=== PATIENT | male | born 1965 | race Caucasian/White ===

== ENCOUNTER 2018-01-21 12:48 | Outpatient (REF) | payer MEDICAID, SELFPAY ==
[2018-01-21 13:55] LABS: Abs Immature Grans 0.02 k/cumm (0.0-0.09); Absolute Basophil Count 0.02 k/cumm (0.0-0.2); Absolute Eosinophil Count 0.14 k/cumm (0.0-0.7); Absolute Lymphocyte Count 2.24 k/cumm (1.2-3.4); Absolute Monocyte Count 0.63 k/cumm (0.11-0.7); Absolute Neutrophil Count 4.54 k/cumm (1.2-6.7); Basophils % 0.3; Eosinophils % 1.8; HCT 35.9 % (40.0-50.0); HGB 12.2 g/dL (13.5-17.5); Immature Grans % 0.3; Lymphocytes % 29.5; Mean Corpuscular Hemoglobin 31.1 pg (27.0-33.0); Mean Corpuscular Volume 91.6 fL (80-95); Mean Platelet Volume 10.9 fL (8.0-11.0); Monocytes % 8.3; Neutrophils % 59.8; Platelet Count 261 x1000/uL (130-400); RBC 3.92 m/cumm (4.50-6.00); RBC Distribution Width 13.5 % (11.8-14.1); White Blood Cell Count 7.59 k/cumm (4.4-10.8)
[2018-01-21 14:04] LABS: ALT 49 U/L (12-78); AST 29 U/L (15-37); Albumin 3.2 g/dL (3.4-5.0); Alkaline Phosphatase 65 U/L (46-116); Anion Gap 8.3 mmol/L (3-11); BUN 51 mg/dL (7-18); Bilirubin, Total 0.3 mg/dL (0.2-1.0); CO2 25.7 mmol/L (21.0-32.0); CREATININE 1.46 mg/dL (0.70-1.30); Calcium 8.8 mg/dL (8.5-10.1); Chloride 105 mmol/L (98-107); Glucose 213 mg/dL (70-100); Potassium 5.9 mmol/L (3.5-5.1); Sodium 139 mmol/L (136-145); Total Protein 6.5 g/dL (6.4-8.2)
[2018-01-21 14:05] LABS: VALPROIC ACID 41.5 ug/mL (50-100)
== END 2018-01-21 13:08 ==
LOC: LBN 12:48
PROVIDERS: PCP Nurse Practitioner Family; Visit Provider Family Medicine
DX: E10.40 Type 1 diabetes mellitus with diabetic neuropathy, unspecified (principal); E78.5 Hyperlipidemia, unspecified; I10 Essential (primary) hypertension; Z51.81 Encounter for therapeutic drug level monitoring; Z86.73 Personal history of transient ischemic attack (TIA), and cerebral infarction without residual deficits; F31.9 Bipolar disorder, unspecified
CPT/HCPCS: 80053; 80164; 85025

== ENCOUNTER 2018-01-25 14:50 | Outpatient (REF) | payer MEDICAID, SELFPAY ==
[2018-01-25 15:16] LABS: Potassium 5.6 mmol/L (3.5-5.1)
== END 2018-01-25 15:10 ==
LOC: LBN 14:50
PROVIDERS: PCP Nurse Practitioner Family; Visit Provider Family Medicine
DX: E87.5 Hyperkalemia (principal)
CPT/HCPCS: 84132

== ENCOUNTER 2018-01-31 03:23 | Emergency (ER) | payer MEDICAID, SELFPAY ==
[2018-01-31 03:31] VITALS: BP 105/59; PULSE 102; RESP 17; TEMP 37.9; O2SAT 96
--- NOTE | 2018-01-31 03:38 | W.ED.GENAD ---
Discharge Plan Disposition Patient Disposition: SNF (LEVEL 1) [facility] Condition: Fair Discharge Details Chief Complaint: Fever Clinical Impression: HCAP (healthcare-associated pneumonia), Renal insufficiency Reason For Visit: AMY Primary Care Provider: Judy Ordoñez ED Provider: Miguel Angel Leiva [place] Meds and New Rx's Prescriptions: New Iv Access 1 ea IV DIRECTED 7 Days RF: 0 piperacillin-tazobactam [Zosyn] 3.375 gram Recon Soln 3.375 g IVPB QID 7 Days RF: 0 Continue lancets [OneTouch Delica Lancets] 1 EACH misc 1 ea Miscellaneous AC & HS Qty: 360 RF: 3 pen needle, diabetic [BD Ultra-Fine Orig Pen Needle] 1 EACH needle 1 ea Miscellaneous QID Qty: 300 RF: 3 blood sugar diagnostic [OneTouch Verio] 1 EACH strip 1 ea Miscellaneous AC & HS Qty: 400 RF: 3 buspirone 15 MG tablet 15 mg PO BID Qty: 60 RF: 0 Atorvastatin Calcium 10 MG tablet 10 mg PO DAILY Qty: 30 RF: 0 verapamil 40 MG tablet 40 mg PO HS Qty: 30 RF: 0 magnesium oxide 400 MG tablet 400 mg PO DAILY Qty: 30 RF: 0 fluoxetine [Prozac] 20 MG capsule 20 mg PO DAILY Qty: 30 RF: 0 fludrocortisone 0.1 MG tablet 0.1 mg PO BID Qty: 60 RF: 0 gabapentin 800 MG tablet 800 mg PO BID Qty: 60 RF: 11 divalproex [Depakote] 500 MG tablet,delayed release (DR/EC) 1,000 mg PO BID Qty: 120 RF: 11 magnesium hydroxide [Milk of Magnesia] 400 MG/5 ML suspension 30 ml PO PRN RF: 0 sodium phosphates [Fleet Enema] 133 ML enema 133 ml RC PRN RF: 0 acetaminophen [Tylenol Extra Strength] 500 MG tablet 1,000 mg PO Q6H PRN PRNRF: 0 dextrose [Glutose 15] 15 GM/37.5 GM gel 25 gm PO PRN PRNQty: 1 RF: 1 glucagon (human recombinant) [Glucagon Emergency Kit (human)] 1 MG kit 1 mg IJ PRN PRNRF: 0 dextrose [Glutose 15] 15 GM/37.5 GM gel 15 gm PO DIRECTED PRNQty: 1 RF: 0 ranitidine HCl [Zantac] 150 MG tablet 150 mg PO BID RF: 0 lisinopril 10 MG tablet 10 mg PO DAILY RF: 0 insulin aspart U-100 [Novolog Flexpen U-100 Insulin] 300 UNITS/3 ML insulin pen 1 unit Sub-Q 0800,1200,1700 RF: 0 insulin aspart U-100 [Novolog Flexpen U-100 Insulin] 300 UNITS/3 ML insulin pen Sub-Q 0800,1200,1700 RF: 0 insulin glargine [Lantus Solostar U-100 Insulin] 300 UNITS/3 ML insulin pen 10 units Sub-Q HS RF: 0 acidophilus-pectin, citrus 1 CAP tablet 1 cap PO TID Qty: 30 RF: 0 Discharge Instructions Additional Instructions: Would continue NS at 150 ml/hr over the next 24 hours and repeat a BMP tomorrow morning. Zosyn 3.375 g IV q6h for 1 week for HCAP. Tylenol for fever. Should be re-evaluated by MD tomorrow. Return to ED if worse. Referrals: Judy Ordoñez NP [Primary Care Provider] - Medical Decision Making Patient here with fever and fluctuating BP, elevated sugar. He has cough and some diminished breath sounds at right base. Will need IV, labs, cultures, urine and chest x-ray. Will give fluid bolus. Patient's labs with some anemia and some renal insufficiency likely related to some dehydration. Lytes ok. No anion gap. Sugar here 258. Lactate just over 2. LR bolus finishing then will switch to NS at 150 ml/hr. CXR with ELLY infiltrate so will treat with Zosyn for HCAP. Nurse spoke with nursing at [facility] and they are able to do IVF and IV abx there. He is not septic or toxic and saturations are good so will send back and have doctor there check on him tomorrow. Return to hospital if worsening symptoms. Lab Data Lab results reviewed: Yes I reviewed the patient's lab results. HPI General Mode of arrival: EMS. Date/Time Provider Initiated Documentation: 01/31/18 03:37. Limitations to Documentation: no limitations. Information obtained by: patient. HPI Narrative: Patient states he woke up with chills and was found to have fever and elevated blood pressure. Sugar also high. Sent here for evaluation. He has had cough with some post tussive vomiting. He denies chest pain, shortness of breath or back pain. He denies diarrhea but has a little nausea and a little abdominal pain. He denies urinary symptoms. He denies headache. He did have some left sided neck pain with radiation down into shoulder now essentially gone. He has old right sided deficits from previous stroke. Related Data Home Medications Medication Instructions Recorded Confirmed lancets [Bal[employer]Touch Lipperhey Lancets] #360 ea 01/08/16 01/31/18 acetaminophen [Tylenol Extra 1,000 mg PO Q6H PRN PRN 02/26/16 01/31/18 Strength] pen needle, diabetic [BD #300 04/06/17 01/31/18 Ultra-Fine Orig Pen Needle] dextrose [Glutose 15] 25 gm PO PRN PRN #1 tube 05/15/17 01/31/18 blood sugar diagnostic [OneTouch #400 strip 07/01/17 01/31/18 Verio] buspirone 15 mg PO BID #60 tab-cap 09/23/17 01/31/18 fludrocortisone 0.1 mg PO BID #60 tab-cap 10/05/17 01/31/18 fluoxetine [Prozac] 20 mg PO DAILY #30 tab-cap 10/05/17 01/31/18 magnesium oxide 400 mg PO DAILY #30 tab-cap 10/05/17 01/31/18 verapamil 40 mg PO HS #30 tab-cap 10/05/17 01/31/18 acidophilus-pectin, citrus 1 cap PO TID #30 cap 10/12/17 01/31/18 glucagon (human recombinant) 1 mg IJ PRN PRN 10/29/17 01/31/18 [Glucagon Emergency Kit (human)] divalproex [Depakote] 1,000 mg PO BID #120 tab-cap 11/11/17 01/31/18 gabapentin 800 mg PO BID #60 tab-cap 11/11/17 01/31/18 dextrose [Glutose 15] 15 gm PO DIRECTED PRN #1 tube 11/26/17 01/31/18 insulin aspart U-100 [Novolog 0 units SUB-Q 0800,1200,1700 pen 11/26/17 01/31/18 Flexpen U-100 Insulin] insulin aspart U-100 [Novolog 1 unit SUB-Q 0800,1200,1700 pen 11/26/17 01/31/18 Flexpen U-100 Insulin] insulin glargine [Lantus Solostar 10 units SUB-Q HS pen 11/26/17 01/31/18 U-100 Insulin] lisinopril 10 mg PO DAILY tab 11/26/17 01/31/18 ranitidine HCl [Zantac] 150 mg PO BID tab 11/26/17 01/31/18 magnesium hydroxide [Milk of 30 ml PO PRN ml 12/21/17 01/31/18 Magnesia] sodium phosphates [Fleet Enema] 133 ml RC PRN enema 12/21/17 01/31/18 IV Access 1 ea IV DIRECTED 7 Days 01/31/18 piperacillin-tazobactam [Zosyn] 3.375 g IVPB QID 7 Days each 01/31/18 Previous Rx's Medication Instructions Recorded pen needle, diabetic [BD #300 04/06/17 Ultra-Fine Orig Pen Needle] dextrose [Glutose 15] 25 gm PO PRN PRN #1 tube 05/15/17 blood sugar diagnostic [OneTouch #400 strip 07/01/17 Verio] buspirone 15 mg PO BID #60 tab-cap 09/23/17 fludrocortisone 0.1 mg PO BID #60 tab-cap 10/05/17 fluoxetine [Prozac] 20 mg PO DAILY #30 tab-cap 10/05/17 magnesium oxide 400 mg PO DAILY #30 tab-cap 10/05/17 verapamil 40 mg PO HS #30 tab-cap 10/05/17 acidophilus-pectin, citrus 1 cap PO TID #30 cap 10/12/17 divalproex [Depakote] 1,000 mg PO BID #120 tab-cap 11/11/17 gabapentin 800 mg PO BID #60 tab-cap 11/11/17 dextrose [Glutose 15] 15 gm PO DIRECTED PRN #1 tube 11/26/17 insulin aspart U-100 [Novolog 0 units SUB-Q 0800,1200,1700 pen 11/26/17 Flexpen U-100 Insulin] insulin aspart U-100 [Novolog 1 unit SUB-Q 0800,1200,1700 pen 11/26/17 Flexpen U-100 Insulin] insulin glargine [Lantus Solostar 10 units SUB-Q HS pen 11/26/17 U-100 Insulin] lisinopril 10 mg PO DAILY tab 11/26/17 ranitidine HCl [Zantac] 150 mg PO BID tab 11/26/17 IV Access 1 ea IV DIRECTED 7 Days 01/31/18 piperacillin-tazobactam [Zosyn] 3.375 g IVPB QID 7 Days each 01/31/18 Allergies Allergy/AdvReac Type Severity Reaction Status Date / Time No Known Drug Allergies Allergy none Unverified 01/31/18 04:03 Review of Systems Constitutional Reports chills, Reports fever(s), Denies headache(s) and Denies malaise Eyes Denies eye discharge and Denies irritation ENT Denies otalgia, Denies facial pain, Denies headache(s), Denies nasal congestion, Reports neck pain, Denies sinus pressure and Denies sore throat Cardiovascular Denies chest pain, Denies diaphoresis, Denies syncope, Denies rapid heart rate, Denies edema and Denies dyspnea Respiratory Reports cough and Denies dyspnea Gastrointestinal Reports abdominal pain, Denies diarrhea, Reports nausea and Reports vomiting Genitourinary Denies hematuria, Denies dysuria and Denies flank pain Musculoskeletal Denies back pain, Denies myalgias, Denies arthralgias and Reports neck pain Integumentary/Breasts Denies erythema and Denies rash Neurologic Denies abnormal speech, Denies confusion, Denies syncope, Denies headache(s), Reports focal weakness (residual right sided weakness) and Denies sensory deficit Psychiatric Denies confusion [facility] Family History Mother Diabetes Heart disease Father Alzheimer's disease Parkinson's disease Sister Diabetes Essential hypertension Obese Brother Diabetes Essential hypertension Obese Medical History Clostridium difficile infection Depression Diabetic neuropathy Diabetic retinopathy ETOH abuse Fracture, metacarpal (01/08/14) GERD (gastroesophageal reflux disease) Hyperlipidemia Tobacco use disorder Type 1 diabetes mellitus Social History Smoking/Tobacco Use Status: Former Tobacco Use Surgical History EGD - MAC (05/03/16) EGD w/ BX (06/24/16) I&D LEFT DEEP [facility] (04/23/15) Exam Const General: cooperative and no acute distress Orientation: alert and oriented x3 [facility] Head: normocephalic and atraumatic Mouth: moist mucous membranes Eyes Conjunctivae: conjunctivae normal Sclera: sclerae normal Neck Neck: normal visual inspection, full ROM and supple Resp Effort & Inspection: normal respiratory effort Auscultation: diminished lung sounds on the right in the lower lung hathaway Cardio Rate: regular rate Rhythm: regular rhythm Heart Sounds: S1 normal and S2 normal Pulses: radial pulses present GI Palpation: soft, not firm, no guarding and nontender Skin General skin exam: no rashes or lesions noted and no erythema Neuro General: alert, oriented x3, moves all extremities (weakness on right is old) and CN's II-XI intact bilaterally Sensory Exam: no sensory deficits noted Extrem General: normal to inspection, full ROM and no calf tenderness
[2018-01-31] MEDS: Lactated Ringers 1,000 ML 1000 ML IV (03:45)
--- NOTE | 2018-01-31 04:10 | ED.GENADUL_ITS ---
Discharge Plan Disposition Patient Disposition: SNF (LEVEL 1) [facility] Condition: Fair Discharge Details Chief Complaint: Fever Clinical Impression: HCAP (healthcare-associated pneumonia), Renal insufficiency Reason For Visit: AMY Primary Care Provider: Judy Ordoñez ED Provider: Miguel Angel Leiva [place] Meds and New Rx's Prescriptions: New Iv Access 1 ea IV DIRECTED 7 Days RF: 0 piperacillin-tazobactam [Zosyn] 3.375 gram Recon Soln 3.375 g IVPB QID 7 Days RF: 0 Continue lancets [OneTouch Delica Lancets] 1 EACH misc 1 ea Miscellaneous AC & HS Qty: 360 RF: 3 pen needle, diabetic [BD Ultra-Fine Orig Pen Needle] 1 EACH needle 1 ea Miscellaneous QID Qty: 300 RF: 3 blood sugar diagnostic [OneTouch Verio] 1 EACH strip 1 ea Miscellaneous AC & HS Qty: 400 RF: 3 buspirone 15 MG tablet 15 mg PO BID Qty: 60 RF: 0 Atorvastatin Calcium 10 MG tablet 10 mg PO DAILY Qty: 30 RF: 0 verapamil 40 MG tablet 40 mg PO HS Qty: 30 RF: 0 magnesium oxide 400 MG tablet 400 mg PO DAILY Qty: 30 RF: 0 fluoxetine [Prozac] 20 MG capsule 20 mg PO DAILY Qty: 30 RF: 0 fludrocortisone 0.1 MG tablet 0.1 mg PO BID Qty: 60 RF: 0 gabapentin 800 MG tablet 800 mg PO BID Qty: 60 RF: 11 divalproex [Depakote] 500 MG tablet,delayed release (DR/EC) 1,000 mg PO BID Qty: 120 RF: 11 magnesium hydroxide [Milk of Magnesia] 400 MG/5 ML suspension 30 ml PO PRN RF: 0 sodium phosphates [Fleet Enema] 133 ML enema 133 ml RC PRN RF: 0 acetaminophen [Tylenol Extra Strength] 500 MG tablet 1,000 mg PO Q6H PRN PRNRF: 0 dextrose [Glutose 15] 15 GM/37.5 GM gel 25 gm PO PRN PRNQty: 1 RF: 1 glucagon (human recombinant) [Glucagon Emergency Kit (human)] 1 MG kit 1 mg IJ PRN PRNRF: 0 dextrose [Glutose 15] 15 GM/37.5 GM gel 15 gm PO DIRECTED PRNQty: 1 RF: 0 ranitidine HCl [Zantac] 150 MG tablet 150 mg PO BID RF: 0 lisinopril 10 MG tablet 10 mg PO DAILY RF: 0 insulin aspart U-100 [Novolog Flexpen U-100 Insulin] 300 UNITS/3 ML insulin pen 1 unit Sub-Q 0800,1200,1700 RF: 0 insulin aspart U-100 [Novolog Flexpen U-100 Insulin] 300 UNITS/3 ML insulin pen Sub-Q 0800,1200,1700 RF: 0 insulin glargine [Lantus Solostar U-100 Insulin] 300 UNITS/3 ML insulin pen 10 units Sub-Q HS RF: 0 acidophilus-pectin, citrus 1 CAP tablet 1 cap PO TID Qty: 30 RF: 0 Discharge Instructions Additional Instructions: Would continue NS at 150 ml/hr over the next 24 hours and repeat a BMP tomorrow morning. Zosyn 3.375 g IV q6h for 1 week for HCAP. Tylenol for fever. Should be re-evaluated by MD tomorrow. Return to ED if worse. Referrals: Judy Ordoñez NP [Primary Care Provider] - Medical Decision Making Patient here with fever and fluctuating BP, elevated sugar. He has cough and some diminished breath sounds at right base. Will need IV, labs, cultures, urine and chest x-ray. Will give fluid bolus. Patient's labs with some anemia and some renal insufficiency likely related to some dehydration. Lytes ok. No anion gap. Sugar here 258. Lactate just over 2. LR bolus finishing then will switch to NS at 150 ml/hr. CXR with ELLY infiltrate so will treat with Zosyn for HCAP. Nurse spoke with nursing at [facility] and they are able to do IVF and IV abx there. He is not septic or toxic and saturations are good so will send back and have doctor there check on him tomorrow. Return to hospital if worsening symptoms. Lab Data Lab results reviewed: Yes I reviewed the patient's lab results. HPI General Mode of arrival: EMS . Date/Time Provider Initiated Documentation: 01/31/18 03:37 . Limitations to Documentation: no limitations . Information obtained by: patient . HPI Narrative: Patient states he woke up with chills and was found to have fever and elevated blood pressure. Sugar also high. Sent here for evaluation. He has had cough with some post tussive vomiting. He denies chest pain, shortness of breath or back pain. He denies diarrhea but has a little nausea and a little abdominal pain. He denies urinary symptoms. He denies headache. He did have some left sided neck pain with radiation down into shoulder now essentially gone. He has old right sided deficits from previous stroke. Related Data Home Medications Medication Instructions Recorded Confirmed lancets [Joy Media GroupTouch Triton Lancets] #360 ea 01/08/16 01/31/18 acetaminophen [Tylenol Extra 1,000 mg PO Q6H PRN PRN 02/26/16 01/31/18 Strength] pen needle, diabetic [BD #300 04/06/17 01/31/18 Ultra-Fine Orig Pen Needle] dextrose [Glutose 15] 25 gm PO PRN PRN #1 tube 05/15/17 01/31/18 blood sugar diagnostic [OneTouch #400 strip 07/01/17 01/31/18 Verio] buspirone 15 mg PO BID #60 tab-cap 09/23/17 01/31/18 fludrocortisone 0.1 mg PO BID #60 tab-cap 10/05/17 01/31/18 fluoxetine [Prozac] 20 mg PO DAILY #30 tab-cap 10/05/17 01/31/18 magnesium oxide 400 mg PO DAILY #30 tab-cap 10/05/17 01/31/18 verapamil 40 mg PO HS #30 tab-cap 10/05/17 01/31/18 acidophilus-pectin, citrus 1 cap PO TID #30 cap 10/12/17 01/31/18 glucagon (human recombinant) 1 mg IJ PRN PRN 10/29/17 01/31/18 [Glucagon Emergency Kit (human)] divalproex [Depakote] 1,000 mg PO BID #120 tab-cap 11/11/17 01/31/18 gabapentin 800 mg PO BID #60 tab-cap 11/11/17 01/31/18 dextrose [Glutose 15] 15 gm PO DIRECTED PRN #1 tube 11/26/17 01/31/18 insulin aspart U-100 [Novolog 0 units SUB-Q 0800,1200,1700 pen 11/26/17 Flexpen U-100 Insulin] insulin aspart U-100 [Novolog 1 unit SUB-Q 0800,1200,1700 pen 11/26/17 01/31/18 Flexpen U-100 Insulin] insulin glargine [Lantus Solostar 10 units SUB-Q HS pen 11/26/17 01/31/18 U-100 Insulin] lisinopril 10 mg PO DAILY tab 11/26/17 01/31/18 ranitidine HCl [Zantac] 150 mg PO BID tab 11/26/17 01/31/18 magnesium hydroxide [Milk of 30 ml PO PRN ml 12/21/17 01/31/18 Magnesia] sodium phosphates [Fleet Enema] 133 ml RC PRN enema 12/21/17 01/31/18 IV Access 1 ea IV DIRECTED 7 Days 01/31/18 piperacillin-tazobactam [Zosyn] 3.375 g IVPB QID 7 Days each 01/31/18 Previous Rx's Medication Instructions Recorded pen needle, diabetic [BD #300 04/06/17 Ultra-Fine Orig Pen Needle] dextrose [Glutose 15] 25 gm PO PRN PRN #1 tube 05/15/17 blood sugar diagnostic [OneTouch #400 strip 07/01/17 Verio] buspirone 15 mg PO BID #60 tab-cap 09/23/17 fludrocortisone 0.1 mg PO BID #60 tab-cap 10/05/17 fluoxetine [Prozac] 20 mg PO DAILY #30 tab-cap 10/05/17 magnesium oxide 400 mg PO DAILY #30 tab-cap 10/05/17 verapamil 40 mg PO HS #30 tab-cap 10/05/17 acidophilus-pectin, citrus 1 cap PO TID #30 cap 10/12/17 divalproex [Depakote] 1,000 mg PO BID #120 tab-cap 11/11/17 gabapentin 800 mg PO BID #60 tab-cap 11/11/17 dextrose [Glutose 15] 15 gm PO DIRECTED PRN #1 tube 11/26/17 insulin aspart U-100 [Novolog 0 units SUB-Q 0800,1200,1700 pen 11/26/17 Flexpen U-100 Insulin] insulin aspart U-100 [Novolog 1 unit SUB-Q 0800,1200,1700 pen 11/26/17 Flexpen U-100 Insulin] insulin glargine [Lantus Solostar 10 units SUB-Q HS pen 11/26/17 U-100 Insulin] lisinopril 10 mg PO DAILY tab 11/26/17 ranitidine HCl [Zantac] 150 mg PO BID tab 11/26/17 IV Access 1 ea IV DIRECTED 7 Days 01/31/18 piperacillin-tazobactam [Zosyn] 3.375 g IVPB QID 7 Days each 01/31/18 Allergies Allergy/AdvReac Type Severity Reaction Status Date / Time No Known Drug Allergies Allergy none Unverified 01/31/18 04:03 Review of Systems Constitutional Reports chills, Reports fever(s), Denies headache(s) and Denies malaise Eyes Denies eye discharge and Denies irritation ENT Denies otalgia, Denies facial pain, Denies headache(s), Denies nasal congestion , Reports neck pain, Denies sinus pressure and Denies sore throat Cardiovascular Denies chest pain, Denies diaphoresis, Denies syncope, Denies rapid heart rate, Denies edema and Denies dyspnea Respiratory Reports cough and Denies dyspnea Gastrointestinal Reports abdominal pain, Denies diarrhea, Reports nausea and Reports vomiting Genitourinary Denies hematuria, Denies dysuria and Denies flank pain Musculoskeletal Denies back pain, Denies myalgias, Denies arthralgias and Reports neck pain Integumentary/Breasts Denies erythema and Denies rash Neurologic Denies abnormal speech, Denies confusion, Denies syncope, Denies headache(s), Reports focal weakness (residual right sided weakness) and Denies sensory deficit Psychiatric Denies confusion [facility] Family History Mother Diabetes Heart disease Father Alzheimer's disease Parkinson's disease Sister Diabetes Essential hypertension Obese Brother Diabetes Essential hypertension Obese Medical History Clostridium difficile infection Depression Diabetic neuropathy Diabetic retinopathy ETOH abuse Fracture, metacarpal (01/08/14) GERD (gastroesophageal reflux disease) Hyperlipidemia Tobacco use disorder Type 1 diabetes mellitus Social History Smoking/Tobacco Use Status: Former Tobacco Use Surgical History EGD - MAC (05/03/16) EGD w/ BX (06/24/16) I&D LEFT DEEP [place] [facility] (04/23/15) Exam Const General: cooperative and no acute distress Orientation: alert and oriented x3 [facility] Head: normocephalic and atraumatic Mouth: moist mucous membranes Eyes Conjunctivae: conjunctivae normal Sclera: sclerae normal Neck Neck: normal visual inspection, full ROM and supple Resp Effort & Inspection: normal respiratory effort Auscultation: diminished lung sounds on the right in the lower lung hathaway Cardio Rate: regular rate Rhythm: regular rhythm Heart Sounds: S1 normal and S2 normal Pulses: radial pulses present GI Palpation: soft, not firm, no guarding and nontender Skin General skin exam: no rashes or lesions noted and no erythema Neuro General: alert, oriented x3, moves all extremities (weakness on right is old) and CN's II-XI intact bilaterally Sensory Exam: no sensory deficits noted Extrem General: normal to inspection, full ROM and no calf tenderness
[2018-01-31 04:21] LABS: Abs Immature Grans 0.03 k/cumm (0.0-0.09); Absolute Basophil Count 0.01 k/cumm (0.0-0.2); Absolute Eosinophil Count 0.15 k/cumm (0.0-0.7); Absolute Monocyte Count 1.15 k/cumm (0.11-0.7); Absolute Neutrophil Count 8.22 k/cumm (1.2-6.7); Basophils % 0.1; Eosinophils % 1.4; HCT 32.5 % (40.0-50.0); HGB 11.2 g/dL (13.5-17.5); Immature Grans % 0.3; Lymphocytes % 7.7; Mean Corp. HGB Concentration 34.5 g/dL (32.0-36.0); Mean Corpuscular Hemoglobin 31.2 pg (27.0-33.0); Mean Corpuscular Volume 90.5 fL (80-95); Mean Platelet Volume 10.3 fL (8.0-11.0); Monocytes % 11.1; Neutrophils % 79.4; Platelet Count 246 x1000/uL (130-400); RBC 3.59 m/cumm (4.50-6.00); RBC Distribution Width 13.3 % (11.8-14.1); White Blood Cell Count 10.36 k/cumm (4.4-10.8)
[2018-01-31 04:22] LABS: BE (Venous) -1.4 mmol/L (-3-3); HCO3 (Venous) 25 mmol/L (22-28); O2 Sat (Venous) 72 % (70-80); TCO2 (Venous) 23 mmol/L (22-29); pCO2 (Venous) 46 mm/Hg (34-47); pH (Venous) 7.33 (7.32-7.43); pO2 (Venous) 41 mm/Hg (28-44)
--- NOTE | 2018-01-31 04:23 | DI.RAD_ITS ---
SYMPTOM/DIAGNOSIS: FEVER, COUGH AP AND LATERAL CHEST: Comparison is made with 11/21/17. Heart size and pulmonary vasculature are within normal limits. There is a small infiltrate in the left upper lobe. The lungs are otherwise clear. No effusions or pneumothoraces are identified. The bones are intact. IMPRESSION: Left upper lobe pneumonia.
[2018-01-31 04:24] LABS: Lactate-non-spesis 2.3 mmol/L (0.6-1.4)
[2018-01-31 04:37] LABS: ALT 41 U/L (12-78); AST 18 U/L (15-37); Albumin 2.9 g/dL (3.4-5.0); Alkaline Phosphatase 64 U/L (46-116); BUN 46 mg/dL (7-18); Bilirubin, Total 0.3 mg/dL (0.2-1.0); CREATININE 1.75 mg/dL (0.70-1.30); Calcium 8.3 mg/dL (8.5-10.1); Chloride 103 mmol/L (98-107); Glucose 258 mg/dL (70-100); Potassium 4.8 mmol/L (3.5-5.1); Sodium 137 mmol/L (136-145); Total Protein 6.3 g/dL (6.4-8.2)
--- NOTE | 2018-01-31 05:22 | DI.VRAD_ITS ---
EXAM: XR Chest, 2 Views CLINICAL HISTORY: 52 years old, male; Signs and symptoms; Cough and fever; Patient HX: Cough, fever, vertigo TECHNIQUE: Frontal and lateral views of the chest. COMPARISON: CR CHEST 2 VIEWS PA,LAT 11/21/2017 3:41 PM FINDINGS: Lungs: Small amount of airspace disease in the left upper lobe. Pleural space: Unremarkable. No pneumothorax. Heart: Unremarkable. No cardiomegaly. Mediastinum: Unremarkable. Bones/joints: Unremarkable. IMPRESSION: Small left upper lobe infiltrate. Dictated and Authenticated by: Henry Elaine MD. Ordering:MIK JOHNSON MD
[2018-01-31] MEDS: Acetaminophen 325 MG TAB 650 MG PO (05:48)
[2018-01-31] MEDS: PIPERACILLIN/TAZO 3.375 GM in Normal Saline 50 ML IVPB (06:06)
[2018-01-31] MEDS: Normal Saline 1,000 ML 150 ML IV (06:07)
[2018-01-31 06:48] VITALS: BP 110/66; PULSE 99; RESP 16; TEMP 37.9; O2SAT 98
== END 2018-01-31 07:17 | disposition skilled nursing facility (03) ==
PROVIDERS: Emergency Provider Emergency Medicine; PCP Nurse Practitioner Family
DX: J18.9 Pneumonia, unspecified organism (principal); Y95 Nosocomial condition; E10.65 Type 1 diabetes mellitus with hyperglycemia
CPT/HCPCS: 36415; 36416; 80053; 82805; 82962; 87040; 96361; 96365; 99284; 71046; 83605; 85025; 99285; J2543

== ENCOUNTER 2018-04-14 06:09 | Outpatient (REF) | payer MEDICAID, SELFPAY ==
[2018-04-14 07:56] LABS: Abs Immature Grans 0.02 k/cumm (0.0-0.09); Absolute Basophil Count 0.02 k/cumm (0.0-0.2); Absolute Eosinophil Count 0.16 k/cumm (0.0-0.7); Absolute Lymphocyte Count 2.82 k/cumm (1.2-3.4); Absolute Monocyte Count 0.72 k/cumm (0.11-0.7); Absolute Neutrophil Count 2.67 k/cumm (1.2-6.7); Basophils % 0.3; Eosinophils % 2.5; HCT 35.1 % (40.0-50.0); HGB 11.8 g/dL (13.5-17.5); Immature Grans % 0.3; Mean Corp. HGB Concentration 33.6 g/dL (32.0-36.0); Mean Corpuscular Hemoglobin 30.7 pg (27.0-33.0); Mean Corpuscular Volume 91.4 fL (80-95); Mean Platelet Volume 10.9 fL (8.0-11.0); Monocytes % 11.2; Neutrophils % 41.7; Platelet Count 250 x1000/uL (130-400); RBC 3.84 m/cumm (4.50-6.00); RBC Distribution Width 13.1 % (11.8-14.1); Reticulocyte 1.8 % (0.5-2.4); White Blood Cell Count 6.41 k/cumm (4.4-10.8)
[2018-04-14 08:11] LABS: Iron 85 ug/dL (50-175); Total Iron Binding Capacity 325 ug/dL (250-450); Transferrin Sat 26 % (20-55)
[2018-04-14 08:15] LABS: Hemoglobin A1C 9.3 % (4.5-6.2)
[2018-04-14 08:16] LABS: VALPROIC ACID 68.9 ug/mL (50-100)
[2018-04-14 08:24] LABS: Cholesterol 151 mg/dL (50-200); Ferritin 36 ng/mL (8-388); HDL Cholesterol 66 mg/dL (40-60); LDL CHOLESTEROL 69 mg/dL (<100); TSH 2.61 uIU/mL (0.358-3.74); Triglyceride 37 mg/dL (30-150)
== END 2018-04-14 06:29 ==
LOC: LBN 06:09
PROVIDERS: PCP Nurse Practitioner Family; Visit Provider Family Medicine
DX: E11.9 Type 2 diabetes mellitus without complications (principal); D64.9 Anemia, unspecified; E78.5 Hyperlipidemia, unspecified; I10 Essential (primary) hypertension
CPT/HCPCS: 80061; 83721; 80164; 82728; 83036; 83540; 83550; 84443; 85025; 85045

== ENCOUNTER 2018-05-06 23:51 | Emergency (ER) | payer MEDICAID, SELFPAY ==
--- NOTE | 2018-05-06 23:24 | W.ED.GENAD ---
Discharge Plan Disposition Patient Disposition: HOME Condition: Stable Discharge Details Chief Complaint: Cellulitis Clinical Impression: Cellulitis of foot, right, Diabetic infection of right foot Reason For Visit: AMY Primary Care Provider: Judy Ordoñez ED Provider: John Dexter [place] Meds and New Rx's Prescriptions: New ciprofloxacin HCl 750 mg tablet 750 mg PO BID 14 Days Qty: 28 RF: 0 clindamycin HCl 150 mg capsule 450 mg PO TID 14 Days Qty: 126 RF: 0 Continued ipratropium-albuterol 0.5 mg-3 mg(2.5 mg base)/3 mL solution for nebulization 3 ml IH Q8H RF: 0 bisacodyl [Dulcolax (bisacodyl)] 10 mg suppository 10 mg [place] ONCE RF: 0 divalproex 500 mg tablet extended release 24 hr 1,000 mg PO BID RF: 0 lancets [OneTouch Delica Lancets] 1 EACH misc 1 ea Miscellaneous AC & HS Qty: 360 RF: 3 pen needle, diabetic [BD Ultra-Fine Orig Pen Needle] 1 EACH needle 1 ea Miscellaneous QID Qty: 300 RF: 3 blood sugar diagnostic [OneTouch Verio] 1 EACH strip 1 ea Miscellaneous AC & HS Qty: 400 RF: 3 buspirone 15 MG tablet 15 mg PO BID Qty: 60 RF: 0 Atorvastatin Calcium 10 MG tablet 10 mg PO DAILY Qty: 30 RF: 0 verapamil 40 MG tablet 40 mg PO HS Qty: 30 RF: 0 magnesium oxide 400 MG tablet 400 mg PO DAILY Qty: 30 RF: 0 fluoxetine [Prozac] 20 MG capsule 20 mg PO DAILY Qty: 30 RF: 0 fludrocortisone 0.1 MG tablet 0.1 mg PO BID Qty: 60 RF: 0 magnesium hydroxide [Milk of Magnesia] 400 MG/5 ML suspension 30 ml PO PRN RF: 0 Fleet Enema 133 ML enema 133 ml RC PRN RF: 0 acetaminophen [Tylenol Extra Strength] 500 MG tablet 1,000 mg PO Q6H PRN PRNRF: 0 dextrose [Glutose 15] 15 GM/37.5 GM gel 25 gm PO PRN PRNQty: 1 RF: 1 Glucagon Emergency Kit (human) 1 MG kit 1 mg IJ PRN PRNRF: 0 dextrose [Glutose 15] 15 GM/37.5 GM gel 15 gm PO DIRECTED PRNQty: 1 RF: 0 ranitidine HCl [Zantac] 150 MG tablet 150 mg PO BID RF: 0 lisinopril 10 MG tablet 10 mg PO DAILY RF: 0 Novolog Flexpen U-100 Insulin 300 UNITS/3 ML insulin pen 1 unit Sub-Q 0800,1200,1700 RF: 0 Novolog Flexpen U-100 Insulin 300 UNITS/3 ML insulin pen Sub-Q 0800,1200,1700 RF: 0 Lantus Solostar U-100 Insulin 300 UNITS/3 ML insulin pen 10 units Sub-Q HS RF: 0 Lyrica 100 mg Capsule 100 mg PO BID RF: 0 Discharge Instructions Instructions: Cellulitis (ED) Additional Instructions: take the antibiotics as prescribed. follow up with your primary care provider within 1-2 weeks Medical Decision Making 52 yo male with hx of dm comes in from [facility] and rehab with right foot redness starting earlier today. He has a small open wound on the mid lateral foot that is 1cm in length and appears to be fairly new and from dry skin, he is not sure how long the wound has been there. There is about 2-3 cm of mild erythema surrounding the wound without pain, crepitus. Denies fevers and feels well otherwise. I suspect cellulitis due to the new open wound, will obtain xray to eval for possible osteo and start on po abx given not septic, and obtain lab work so tx response can be followed. No severe pain or crepitus to suggest nec fasc labs show no leukocytosis, elevation of inflammatory markers. Xray negative on myread, if vrad agrees will d/c back to rehab with oral abx and return precautions given. Given his ckd and risk for hyperkalemia will tx with cipro and clindamycin for diabetic foot rather than using bactrim Differential Diagnosis cellulitis, osteomyelitis, diabetic foot infection Imaging Data Radiologic Study: Attestation: I personally reviewed and interpreted this imaging study as follows: Imaging: X-Ray My impression: no acute findings Lab Data Lab results reviewed: Yes I reviewed the patient's lab results. HPI General Mode of arrival: ambulatory. Date/Time Provider Initiated Documentation: 05/06/18 23:52. Limitations to Documentation: no limitations. Information obtained by: patient. History of Present Illness 52 year old M presents to the emergency department with the chief complaint of right foot redness, described as mild, and is localized to the right and lower extremity. Patient reports no radiation. Patient started experiencing this day(s) (1) and it has been constant. No relieving factors improve symptom(s), No exacerbating factors reported . Patient notes no other symptoms.. Patient did receive the following treatments prior to arrival, none Related Data Home Medications Medication Instructions Recorded Confirmed lancets [[employer] Lancets] #360 ea 01/08/16 02/09/18 acetaminophen [Tylenol Extra 1,000 mg PO Q6H PRN PRN 02/26/16 05/06/18 Strength] pen needle, diabetic [BD #300 04/06/17 02/09/18 Ultra-Fine Orig Pen Needle] dextrose [Glutose 15] 25 gm PO PRN PRN #1 tube 05/15/17 05/06/18 blood sugar diagnostic [OneTouch #400 strip 07/01/17 02/09/18 Verio] buspirone 15 mg PO BID #60 tab-cap 09/23/17 05/06/18 fludrocortisone 0.1 mg PO BID #60 tab-cap 10/05/17 02/09/18 fluoxetine [Prozac] 20 mg PO DAILY #30 tab-cap 10/05/17 05/06/18 magnesium oxide 400 mg PO DAILY #30 tab-cap 10/05/17 05/06/18 verapamil 40 mg PO HS #30 tab-cap 10/05/17 05/06/18 Glucagon Emergency Kit (human) 1 mg IJ PRN PRN 10/29/17 05/06/18 Lantus Solostar U-100 Insulin 10 units SUB-Q HS pen 11/26/17 05/06/18 Novolog Flexpen U-100 Insulin 0 units SUB-Q 0800,1200,1700 pen 11/26/17 05/06/18 Novolog Flexpen U-100 Insulin 1 unit SUB-Q 0800,1200,1700 pen 11/26/17 05/06/18 dextrose [Glutose 15] 15 gm PO DIRECTED PRN #1 tube 11/26/17 05/06/18 lisinopril 10 mg PO DAILY tab 11/26/17 05/06/18 ranitidine HCl [Zantac] 150 mg PO BID tab 11/26/17 05/06/18 Fleet Enema 133 ml RC PRN enema 12/21/17 05/06/18 magnesium hydroxide [Milk of 30 ml PO PRN ml 12/21/17 05/06/18 Magnesia] bisacodyl 10 mg rectal suppository 10 mg [place] ONCE 02/09/18 05/06/18 divalproex ER 500 mg 1,000 mg PO BID tab 02/09/18 05/06/18 tablet,extended release 24 hr ipratropium-albuterol 0.5 mg-3 3 ml IH Q8H 02/09/18 05/06/18 mg(2.5 mg base)/3 mL nebulization soln Lyrica 100 mg PO BID 05/06/18 05/06/18 ciprofloxacin HCl 750 mg PO BID 14 Days #28 tab 05/07/18 clindamycin HCl 450 mg PO TID 14 Days #126 cap 05/07/18 Previous Rx's Medication Instructions Recorded pen needle, diabetic [BD #300 04/06/17 Ultra-Fine Orig Pen Needle] dextrose [Glutose 15] 25 gm PO PRN PRN #1 tube 05/15/17 blood sugar diagnostic [OneTouch #400 strip 07/01/17 Verio] buspirone 15 mg PO BID #60 tab-cap 09/23/17 fludrocortisone 0.1 mg PO BID #60 tab-cap 10/05/17 fluoxetine [Prozac] 20 mg PO DAILY #30 tab-cap 10/05/17 magnesium oxide 400 mg PO DAILY #30 tab-cap 10/05/17 verapamil 40 mg PO HS #30 tab-cap 10/05/17 Lantus Solostar U-100 Insulin 10 units SUB-Q HS pen 11/26/17 Novolog Flexpen U-100 Insulin 0 units SUB-Q 0800,1200,1700 pen 11/26/17 Novolog Flexpen U-100 Insulin 1 unit SUB-Q 0800,1200,1700 pen 11/26/17 dextrose [Glutose 15] 15 gm PO DIRECTED PRN #1 tube 11/26/17 lisinopril 10 mg PO DAILY tab 11/26/17 ranitidine HCl [Zantac] 150 mg PO BID tab 11/26/17 ciprofloxacin HCl 750 mg PO BID 14 Days #28 tab 05/07/18 clindamycin HCl 450 mg PO TID 14 Days #126 cap 05/07/18 Allergies Allergy/AdvReac Type Severity Reaction Status Date / Time No Known Drug Allergies Allergy none Unverified 05/06/18 23:52 General ESTEFANIA: 3 Review of Systems Review of Systems All systems reviewed & are unremarkable except as noted in HPI and below Constitutional Denies chills, Denies fever(s) and Denies weakness Eyes Denies loss of vision ENT Denies change in voice Cardiovascular Denies chest pain and Denies dyspnea Respiratory Denies dyspnea Gastrointestinal Denies abdominal pain, Denies nausea and Denies vomiting Musculoskeletal Denies joint swelling Neurologic Denies loss of vision and Denies weakness [facility] Medical History Uncontrolled type 1 diabetes mellitus (Acute 03/13/14) Tobacco use disorder (Acute 03/15/14) Palmar space infection of left hand (Acute 06/06/15) Orthostatic hypotension (Acute 08/02/15) Insomnia (Acute 03/15/14) Incomplete bladder emptying (Acute 03/31/17) Hyperlipidemia (Acute 03/15/14) Hemorrhagic stroke (Acute 08/25/16) Gastric ulcer (Acute 05/29/16) Essential hypertension (Acute 03/19/16) Diabetic ulcer of right foot (Acute 03/15/14) Diabetic neuropathy, type I diabetes mellitus (Acute 03/15/14) DNR (do not resuscitate) (Acute 06/24/17) DJD (degenerative joint disease) of cervical spine (Acute 07/26/15) Bipolar affective disorder in remission (Acute) Clostridium difficile infection Depression Diabetic neuropathy Diabetic retinopathy ETOH abuse Fracture, metacarpal (01/08/14) GERD (gastroesophageal reflux disease) Hyperlipidemia Tobacco use disorder Type 1 diabetes mellitus Family History Mother Diabetes Heart disease Father Alzheimer's disease Parkinson's disease Sister Diabetes Essential hypertension Obese Brother Diabetes Essential hypertension Obese Social History housing: long term current occupational status: disabled Smoking/Tobacco Use Status: Former Tobacco Use alcohol intake: former substance use type: does not use Exam Const General: no acute distress Orientation: alert HENMT Head: normal to inspection Ears: external ears normal General nose exam: external nose normal Mouth: moist mucous membranes Eyes General: appearance normal, both eyes and all related structures Neck Neck: normal visual inspection Resp Effort & Inspection: normal respiratory effort and able to speak in complete sentences Cardio Rate: regular rate Skin Rashes: rashes noted Neuro General: alert and oriented x3 Extrem General: normal to inspection Psych Mental Status: mental status grossly normal
[2018-05-06 23:45] VITALS: BP 161/99; PULSE 92; RESP 16; TEMP 36.6; O2SAT 97
--- NOTE | 2018-05-06 23:53 | DI.RAD_ITS ---
SYMPTOM/DIAGNOSIS: LATERAL FOOT SKIN INFECTION WITH OPEN WOUND RIGHT FOOT: Comparison is made with 02/12/14. Soft tissue swelling is seen around the metatarsal region. No fracture or bony erosions are identified. Flexion deformity is seen at the interphalangeal joint of the great toe. Vascular calcifications are seen. IMPRESSION: Soft tissue swelling. No plain film evidence of osteomyelitis.
--- NOTE | 2018-05-06 23:59 | ED.GENADUL_ITS ---
Discharge Plan Disposition Patient Disposition: HOME Condition: Stable Discharge Details Chief Complaint: Cellulitis Clinical Impression: Cellulitis of foot, right, Diabetic infection of right foot Reason For Visit: AMY Primary Care Provider: Judy Ordoñez ED Provider: John Dexter [place] Meds and New Rx's Prescriptions: New ciprofloxacin HCl 750 mg tablet 750 mg PO BID 14 Days Qty: 28 RF: 0 clindamycin HCl 150 mg capsule 450 mg PO TID 14 Days Qty: 126 RF: 0 Continued ipratropium-albuterol 0.5 mg-3 mg(2.5 mg base)/3 mL solution for nebulization 3 ml IH Q8H RF: 0 bisacodyl [Dulcolax (bisacodyl)] 10 mg suppository 10 mg [place] ONCE RF: 0 divalproex 500 mg tablet extended release 24 hr 1,000 mg PO BID RF: 0 lancets [OneTouch Delica Lancets] 1 EACH misc 1 ea Miscellaneous AC & HS Qty: 360 RF: 3 pen needle, diabetic [BD Ultra-Fine Orig Pen Needle] 1 EACH needle 1 ea Miscellaneous QID Qty: 300 RF: 3 blood sugar diagnostic [OneTouch Verio] 1 EACH strip 1 ea Miscellaneous AC & HS Qty: 400 RF: 3 buspirone 15 MG tablet 15 mg PO BID Qty: 60 RF: 0 Atorvastatin Calcium 10 MG tablet 10 mg PO DAILY Qty: 30 RF: 0 verapamil 40 MG tablet 40 mg PO HS Qty: 30 RF: 0 magnesium oxide 400 MG tablet 400 mg PO DAILY Qty: 30 RF: 0 fluoxetine [Prozac] 20 MG capsule 20 mg PO DAILY Qty: 30 RF: 0 fludrocortisone 0.1 MG tablet 0.1 mg PO BID Qty: 60 RF: 0 magnesium hydroxide [Milk of Magnesia] 400 MG/5 ML suspension 30 ml PO PRN RF: 0 Fleet Enema 133 ML enema 133 ml RC PRN RF: 0 acetaminophen [Tylenol Extra Strength] 500 MG tablet 1,000 mg PO Q6H PRN PRNRF: 0 dextrose [Glutose 15] 15 GM/37.5 GM gel 25 gm PO PRN PRNQty: 1 RF: 1 Glucagon Emergency Kit (human) 1 MG kit 1 mg IJ PRN PRNRF: 0 dextrose [Glutose 15] 15 GM/37.5 GM gel 15 gm PO DIRECTED PRNQty: 1 RF: 0 ranitidine HCl [Zantac] 150 MG tablet 150 mg PO BID RF: 0 lisinopril 10 MG tablet 10 mg PO DAILY RF: 0 Novolog Flexpen U-100 Insulin 300 UNITS/3 ML insulin pen 1 unit Sub-Q 0800,1200,1700 RF: 0 Novolog Flexpen U-100 Insulin 300 UNITS/3 ML insulin pen Sub-Q 0800,1200,1700 RF: 0 Lantus Solostar U-100 Insulin 300 UNITS/3 ML insulin pen 10 units Sub-Q HS RF: 0 Lyrica 100 mg Capsule 100 mg PO BID RF: 0 Discharge Instructions Instructions: Cellulitis (ED) Additional Instructions: take the antibiotics as prescribed. follow up with your primary care provider within 1-2 weeks Medical Decision Making 52 yo male with hx of dm comes in from [facility] rehab with right foot redness starting earlier today. He has a small open wound on the mid lateral foot that is 1cm in length and appears to be fairly new and from dry skin, he is not sure how long the wound has been there. There is about 2-3 cm of mild erythema surrounding the wound without pain, crepitus. Denies fevers and feels well otherwise. I suspect cellulitis due to the new open wound, will obtain xray to eval for possible osteo and start on po abx given not septic, and obtain lab work so tx response can be followed. No severe pain or crepitus to suggest nec fasc labs show no leukocytosis, elevation of inflammatory markers. Xray negative on myread, if vrad agrees will d/c back to rehab with oral abx and return precautions given. Given his ckd and risk for hyperkalemia will tx with cipro and clindamycin for diabetic foot rather than using bactrim Differential Diagnosis cellulitis, osteomyelitis, diabetic foot infection Imaging Data Radiologic Study: Attestation: I personally reviewed and interpreted this imaging study as follows: Imaging: X-Ray My impression: no acute findings Lab Data Lab results reviewed: Yes I reviewed the patient's lab results. HPI General Mode of arrival: ambulatory . Date/Time Provider Initiated Documentation: 05/06/18 23:52 . Limitations to Documentation: no limitations . Information obtained by: patient . History of Present Illness 52 year old M presents to the emergency department with the chief complaint of right foot redness, described as mild, and is localized to the right and lower extremity. Patient reports no radiation. Patient started experiencing this day(s) (1) and it has been constant. No relieving factors improve symptom(s), No exacerbating factors reported . Patient notes no other symptoms.. Patient did receive the following treatments prior to arrival, none Related Data Home Medications Medication Instructions Recorded Confirmed lancets [[employer] Lancets] #360 ea 01/08/16 02/09/18 acetaminophen [Tylenol Extra 1,000 mg PO Q6H PRN PRN 02/26/16 05/06/18 Strength] pen needle, diabetic [BD #300 04/06/17 02/09/18 Ultra-Fine Orig Pen Needle] dextrose [Glutose 15] 25 gm PO PRN PRN #1 tube 05/15/17 05/06/18 blood sugar diagnostic [OneTouch #400 strip 07/01/17 02/09/18 Verio] buspirone 15 mg PO BID #60 tab-cap 09/23/17 05/06/18 fludrocortisone 0.1 mg PO BID #60 tab-cap 10/05/17 02/09/18 fluoxetine [Prozac] 20 mg PO DAILY #30 tab-cap 10/05/17 05/06/18 magnesium oxide 400 mg PO DAILY #30 tab-cap 10/05/17 05/06/18 verapamil 40 mg PO HS #30 tab-cap 10/05/17 05/06/18 Glucagon Emergency Kit (human) 1 mg IJ PRN PRN 10/29/17 05/06/18 Lantus Solostar U-100 Insulin 10 units SUB-Q HS pen 11/26/17 05/06/18 Novolog Flexpen U-100 Insulin 0 units SUB-Q 0800,1200,1700 pen 11/26/17 05/06/18 Novolog Flexpen U-100 Insulin 1 unit SUB-Q 0800,1200,1700 pen 11/26/17 05/06/18 dextrose [Glutose 15] 15 gm PO DIRECTED PRN #1 tube 11/26/17 05/06/18 lisinopril 10 mg PO DAILY tab 11/26/17 05/06/18 ranitidine HCl [Zantac] 150 mg PO BID tab 11/26/17 05/06/18 Fleet Enema 133 ml RC PRN enema 12/21/17 05/06/18 magnesium hydroxide [Milk of 30 ml PO PRN ml 12/21/17 05/06/18 Magnesia] bisacodyl 10 mg rectal suppository 10 mg IA ONCE 02/09/18 05/06/18 divalproex ER 500 mg 1,000 mg PO BID tab 02/09/18 05/06/18 tablet,extended release 24 hr ipratropium-albuterol 0.5 mg-3 3 ml IH Q8H 02/09/18 05/06/18 mg(2.5 mg base)/3 mL nebulization soln Lyrica 100 mg PO BID 05/06/18 05/06/18 ciprofloxacin HCl 750 mg PO BID 14 Days #28 tab 05/07/18 clindamycin HCl 450 mg PO TID 14 Days #126 cap 05/07/18 Previous Rx's Medication Instructions Recorded pen needle, diabetic [BD #300 04/06/17 Ultra-Fine Orig Pen Needle] dextrose [Glutose 15] 25 gm PO PRN PRN #1 tube 05/15/17 blood sugar diagnostic [OneTouch #400 strip 07/01/17 Verio] buspirone 15 mg PO BID #60 tab-cap 09/23/17 fludrocortisone 0.1 mg PO BID #60 tab-cap 10/05/17 fluoxetine [Prozac] 20 mg PO DAILY #30 tab-cap 10/05/17 magnesium oxide 400 mg PO DAILY #30 tab-cap 10/05/17 verapamil 40 mg PO HS #30 tab-cap 10/05/17 Lantus Solostar U-100 Insulin 10 units SUB-Q HS pen 11/26/17 Novolog Flexpen U-100 Insulin 0 units SUB-Q 0800,1200,1700 pen 11/26/17 Novolog Flexpen U-100 Insulin 1 unit SUB-Q 0800,1200,1700 pen 11/26/17 dextrose [Glutose 15] 15 gm PO DIRECTED PRN #1 tube 11/26/17 lisinopril 10 mg PO DAILY tab 11/26/17 ranitidine HCl [Zantac] 150 mg PO BID tab 11/26/17 ciprofloxacin HCl 750 mg PO BID 14 Days #28 tab 05/07/18 clindamycin HCl 450 mg PO TID 14 Days #126 cap 05/07/18 Allergies Allergy/AdvReac Type Severity Reaction Status Date / Time No Known Drug Allergies Allergy none Unverified 05/06/18 23:52 General ESTEFANIA: 3 Review of Systems Review of Systems All systems reviewed & are unremarkable except as noted in HPI and below Constitutional Denies chills, Denies fever(s) and Denies weakness Eyes Denies loss of vision ENT Denies change in voice Cardiovascular Denies chest pain and Denies dyspnea Respiratory Denies dyspnea Gastrointestinal Denies abdominal pain, Denies nausea and Denies vomiting Musculoskeletal Denies joint swelling Neurologic Denies loss of vision and Denies weakness [facility] Medical History Uncontrolled type 1 diabetes mellitus (Acute 03/13/14) Tobacco use disorder (Acute 03/15/14) Palmar space infection of left hand (Acute 06/06/15) Orthostatic hypotension (Acute 08/02/15) Insomnia (Acute 03/15/14) Incomplete bladder emptying (Acute 03/31/17) Hyperlipidemia (Acute 03/15/14) Hemorrhagic stroke (Acute 08/25/16) Gastric ulcer (Acute 05/29/16) Essential hypertension (Acute 03/19/16) Diabetic ulcer of right foot (Acute 03/15/14) Diabetic neuropathy, type I diabetes mellitus (Acute 03/15/14) DNR (do not resuscitate) (Acute 06/24/17) DJD (degenerative joint disease) of cervical spine (Acute 07/26/15) Bipolar affective disorder in remission (Acute) Clostridium difficile infection Depression Diabetic neuropathy Diabetic retinopathy ETOH abuse Fracture, metacarpal (01/08/14) GERD (gastroesophageal reflux disease) Hyperlipidemia Tobacco use disorder Type 1 diabetes mellitus Family History Mother Diabetes Heart disease Father Alzheimer's disease Parkinson's disease Sister Diabetes Essential hypertension Obese Brother Diabetes Essential hypertension Obese Social History housing: custodial current occupational status: disabled Smoking/Tobacco Use Status: Former Tobacco Use alcohol intake: former substance use type: does not use Exam Const General: no acute distress Orientation: alert HENMT Head: normal to inspection Ears: external ears normal General nose exam: external nose normal Mouth: moist mucous membranes Eyes General: appearance normal, both eyes and all related structures Neck Neck: normal visual inspection Resp Effort & Inspection: normal respiratory effort and able to speak in complete sentences Cardio Rate: regular rate Skin Rashes: rashes noted Neuro General: alert and oriented x3 Extrem General: normal to inspection Psych Mental Status: mental status grossly normal
[2018-05-07 00:11] LABS: Abs Immature Grans 0.06 k/cumm (0.0-0.09); Absolute Basophil Count 0.02 k/cumm (0.0-0.2); Absolute Eosinophil Count 0.14 k/cumm (0.0-0.7); Absolute Lymphocyte Count 3.03 k/cumm (1.2-3.4); Absolute Monocyte Count 0.82 k/cumm (0.11-0.7); Absolute Neutrophil Count 4.18 k/cumm (1.2-6.7); Basophils % 0.2; Eosinophils % 1.7; HCT 32.3 % (40.0-50.0); HGB 10.9 g/dL (13.5-17.5); Immature Grans % 0.7; Lymphocytes % 36.7; Mean Corp. HGB Concentration 33.7 g/dL (32.0-36.0); Mean Corpuscular Hemoglobin 30.7 pg (27.0-33.0); Mean Platelet Volume 10.1 fL (8.0-11.0); Monocytes % 9.9; Neutrophils % 50.8; Platelet Count 265 x1000/uL (130-400); RBC 3.55 m/cumm (4.50-6.00); RBC Distribution Width 13.3 % (11.8-14.1); White Blood Cell Count 8.25 k/cumm (4.4-10.8)
[2018-05-07 00:18] LABS: ALT 30 U/L (12-78); AST 17 U/L (15-37); Albumin 2.7 g/dL (3.4-5.0); Alkaline Phosphatase 64 U/L (46-116); Anion Gap 8.8 mmol/L (3-11); BUN 46 mg/dL (7-18); Bilirubin, Total 0.2 mg/dL (0.2-1.0); C-Reactive Protein 0.88 mg/dL (0.0-0.3); CO2 26.2 mmol/L (21.0-32.0); CREATININE 1.59 mg/dL (0.70-1.30); Calcium 8.5 mg/dL (8.5-10.1); Chloride 106 mmol/L (98-107); Estimated GFR 46.13 (mL/min/1.73m2); Glucose 216 mg/dL (70-100); Potassium 4.8 mmol/L (3.5-5.1); Sodium 141 mmol/L (136-145); Total Protein 6.7 g/dL (6.4-8.2)
--- NOTE | 2018-05-07 00:44 | DI.VRAD_ITS ---
EXAM: XR Right Foot Complete, 3 or more Views EXAM DATE/TIME: 05/06/2018 11:54 PM CLINICAL HISTORY: 52 years old, male; Signs and symptoms; Other: Diabetic foot, open wound/ulcer TECHNIQUE: XR Right foot 3 or more views. COMPARISON: No relevant prior studies available. FINDINGS: Bones/joints: Mild osteopenia. Flexion at the interphalangeal joint of the first digit. Soft tissues: Mild swelling over the dorsum. Vasculature: Vascular arterial calcifications. IMPRESSION: No aggressive osseous lesions identified. Dictated and Authenticated by: Lane Paul MD. Ordering:JANNETTE Lopez MD
[2018-05-07] MEDS: Clindamycin 150 MG CAP 450 MG PO (00:49)
[2018-05-07] MEDS: Ciprofloxacin 250 MG TAB 750 MG PO (00:49)
[2018-05-07 00:50] LABS: ESR 33 MM/HR (1-20)
== END 2018-05-07 01:05 | disposition home or self-care (01) ==
PROVIDERS: Emergency Provider Emergency Medicine; PCP Nurse Practitioner Family
DX: E10.628 Type 1 diabetes mellitus with other skin complications (principal); L03.115 Cellulitis of right lower limb; I12.9 Hypertensive chronic kidney disease with stage 1 through stage 4 chronic kidney disease, or unspecified chronic kidney disease; E10.22 Type 1 diabetes mellitus with diabetic chronic kidney disease; E10.319 Type 1 diabetes mellitus with unspecified diabetic retinopathy without macular edema; E10.40 Type 1 diabetes mellitus with diabetic neuropathy, unspecified; N18.9 Chronic kidney disease, unspecified
CPT/HCPCS: 36415; 80053; 85652; 99284; 73630; 85025; 86140

== ENCOUNTER 2018-05-31 09:23 | Outpatient (REF) | payer MEDICAID, SELFPAY ==
[2018-05-31 11:29] LABS: Anion Gap 7.3 mmol/L (3-11); BUN 36 mg/dL (7-18); CO2 27.7 mmol/L (21.0-32.0); CREATININE 1.45 mg/dL (0.70-1.30); Calcium 9.4 mg/dL (8.5-10.1); Chloride 103 mmol/L (98-107); Estimated GFR 51.31 (mL/min/1.73m2); Glucose 275 mg/dL (70-100); Sodium 138 mmol/L (136-145)
[2018-05-31 11:35] LABS: Potassium 6.1 mmol/L (3.5-5.1)
[2018-05-31 13:02] LABS: COMMENT (LAB VIEW ONLY) 28.91 mg/dL; Microalb ug/mg Crea 636.8 ug/mg Cr
[2018-05-31 15:28] LABS: Potassium 5.3 mmol/L (3.5-5.1)
== END 2018-05-31 09:43 ==
LOC: LBN 09:23
PROVIDERS: Visit Provider Family Medicine
DX: E11.9 Type 2 diabetes mellitus without complications (principal); I10 Essential (primary) hypertension; E87.5 Hyperkalemia
CPT/HCPCS: 80048; 82043; 82570; 84132

== ENCOUNTER 2018-06-01 10:55 | Outpatient (REF) | payer MEDICAID, SELFPAY ==
[2018-06-01 11:14] LABS: Potassium 5.8 mmol/L (3.5-5.1)
== END 2018-06-01 11:15 ==
LOC: LBN 10:55
PROVIDERS: Visit Provider Family Medicine
DX: E87.5 Hyperkalemia (principal)
CPT/HCPCS: 84132

== ENCOUNTER 2018-06-02 16:27 | Outpatient (REF) | payer MEDICAID, SELFPAY ==
[2018-06-02 17:13] LABS: Potassium 5.5 mmol/L (3.5-5.1)
== END 2018-06-02 16:47 ==
LOC: LBN 16:27
PROVIDERS: Visit Provider Family Medicine
DX: E11.9 Type 2 diabetes mellitus without complications (principal); E87.5 Hyperkalemia
CPT/HCPCS: 84132

== ENCOUNTER 2018-06-28 12:37 | Outpatient (REF) | payer MEDICAID, SELFPAY ==
[2018-06-28 15:41] LABS: Anion Gap 9.3 mmol/L (3-11); BUN 37 mg/dL (7-18); CO2 24.7 mmol/L (21.0-32.0); CREATININE 1.38 mg/dL (0.70-1.30); Calcium 8.7 mg/dL (8.5-10.1); Chloride 104 mmol/L (98-107); Estimated GFR 54.32 (mL/min/1.73m2); Glucose 265 mg/dL (70-100); Potassium 5.5 mmol/L (3.5-5.1); Sodium 138 mmol/L (136-145)
== END 2018-06-28 12:57 ==
LOC: LBN 12:37
PROVIDERS: Visit Provider Family Medicine
DX: E11.9 Type 2 diabetes mellitus without complications (principal)
CPT/HCPCS: 80048

== ENCOUNTER 2018-07-02 08:39 | Outpatient (REF) | payer MEDICAID, SELFPAY ==
[2018-07-02 09:04] LABS: Potassium 5.4 mmol/L (3.5-5.1)
== END 2018-07-02 08:59 ==
LOC: LBN 08:39
PROVIDERS: Visit Provider Family Medicine
DX: E10.40 Type 1 diabetes mellitus with diabetic neuropathy, unspecified (principal); I10 Essential (primary) hypertension; E78.5 Hyperlipidemia, unspecified; E87.5 Hyperkalemia
CPT/HCPCS: 84132

== ENCOUNTER 2018-07-08 09:42 | Outpatient (REF) | payer MEDICAID, SELFPAY ==
[2018-07-08 10:18] LABS: Abs Immature Grans 0.03 k/cumm (0.0-0.09); Absolute Basophil Count 0.02 k/cumm (0.0-0.2); Absolute Lymphocyte Count 2.49 k/cumm (1.2-3.4); Absolute Monocyte Count 0.62 k/cumm (0.11-0.7); Absolute Neutrophil Count 2.53 k/cumm (1.2-6.7); Basophils % 0.3; Eosinophils % 1.7; HCT 35.3 % (40.0-50.0); HGB 12.2 g/dL (13.5-17.5); Immature Grans % 0.5; Mean Corp. HGB Concentration 34.6 g/dL (32.0-36.0); Mean Corpuscular Hemoglobin 30.5 pg (27.0-33.0); Mean Corpuscular Volume 88.3 fL (80-95); Mean Platelet Volume 10.7 fL (8.0-11.0); Monocytes % 10.7; Neutrophils % 43.8; Platelet Count 271 x1000/uL (130-400); RBC Distribution Width 13.9 % (11.8-14.1); White Blood Cell Count 5.79 k/cumm (4.4-10.8)
[2018-07-08 10:26] LABS: Potassium 5.1 mmol/L (3.5-5.1)
[2018-07-08 10:33] LABS: Hemoglobin A1C 8.8 % (4.5-6.2)
== END 2018-07-08 10:02 ==
LOC: LBN 09:42
PROVIDERS: Visit Provider Family Medicine
DX: E11.9 Type 2 diabetes mellitus without complications (principal); E87.5 Hyperkalemia; R73.09 Other abnormal glucose; E10.40 Type 1 diabetes mellitus with diabetic neuropathy, unspecified
CPT/HCPCS: 83036; 84132; 85025

== ENCOUNTER 2018-07-24 08:14 | Outpatient (REF) | payer MEDICAID, SELFPAY ==
[2018-07-24 11:36] LABS: HCT 35.7 % (40.0-50.0); HGB 12.3 g/dL (13.5-17.5)
[2018-07-24 11:43] LABS: Anion Gap 8.3 mmol/L (3-11); BUN 36 mg/dL (7-18); CO2 28.7 mmol/L (21.0-32.0); CREATININE 1.57 mg/dL (0.70-1.30); Calcium 9.1 mg/dL (8.5-10.1); Chloride 104 mmol/L (98-107); Estimated GFR 46.81 (mL/min/1.73m2); Glucose 137 mg/dL (70-100); Potassium 4.8 mmol/L (3.5-5.1); Sodium 141 mmol/L (136-145)
== END 2018-07-24 08:34 ==
LOC: LBN 08:14
PROVIDERS: Visit Provider Family Medicine
DX: I95.89 Other hypotension (principal)
CPT/HCPCS: 80048; 85014; 85018

== ENCOUNTER 2018-07-29 15:31 | Outpatient (REF) | payer MEDICAID, SELFPAY ==
[2018-07-29 16:17] LABS: Anion Gap 10.9 mmol/L (3-11); BUN 32 mg/dL (7-18); CO2 25.1 mmol/L (21.0-32.0); CREATININE 1.33 mg/dL (0.70-1.30); Calcium 8.3 mg/dL (8.5-10.1); Chloride 105 mmol/L (98-107); Estimated GFR 56.69 (mL/min/1.73m2); Glucose 168 mg/dL (70-100); Potassium 4.5 mmol/L (3.5-5.1); Sodium 141 mmol/L (136-145)
== END 2018-07-29 15:51 ==
LOC: LBN 15:31
PROVIDERS: Visit Provider Family Medicine
DX: E86.0 Dehydration (principal)
CPT/HCPCS: 80048

== ENCOUNTER 2018-08-14 12:46 | Outpatient (REF) | payer MEDICAID, SELFPAY ==
[2018-08-14 13:50] LABS: Abs Immature Grans 0.02 k/cumm (0.0-0.09); Absolute Basophil Count 0.01 k/cumm (0.0-0.2); Absolute Eosinophil Count 0.04 k/cumm (0.0-0.7); Absolute Monocyte Count 1.51 k/cumm (0.11-0.7); Absolute Neutrophil Count 10.18 k/cumm (1.2-6.7); Basophils % 0.1; Eosinophils % 0.3; HCT 33.6 % (40.0-50.0); HGB 11.4 g/dL (13.5-17.5); Immature Grans % 0.1; Lymphocytes % 14.5; Mean Corp. HGB Concentration 33.9 g/dL (32.0-36.0); Mean Corpuscular Hemoglobin 30.5 pg (27.0-33.0); Mean Corpuscular Volume 89.8 fL (80-95); Mean Platelet Volume 10.7 fL (8.0-11.0); Platelet Count 303 x1000/uL (130-400); RBC 3.74 m/cumm (4.50-6.00); RBC Distribution Width 14.2 % (11.8-14.1); White Blood Cell Count 13.76 k/cumm (4.4-10.8)
[2018-08-14 14:03] LABS: Diff Comment Diff Reviewed
[2018-08-14 14:04] LABS: Polychromasia Present
[2018-08-15 06:18] LABS: Hemoglobin A1C 8.6 % (4.5-6.2)
== END 2018-08-14 13:06 ==
LOC: LBN 12:46
PROVIDERS: Visit Provider Family Medicine
DX: E10.40 Type 1 diabetes mellitus with diabetic neuropathy, unspecified (principal); D64.9 Anemia, unspecified
CPT/HCPCS: 83036; 85025

== ENCOUNTER 2018-08-31 12:28 | Outpatient (CLI) | payer MEDICAID, SELFPAY ==
[2018-08-31 13:40] LABS: Anion Gap 8.3 mmol/L (3-11); BUN 28 mg/dL (7-18); CO2 28.7 mmol/L (21.0-32.0); CREATININE 1.48 mg/dL (0.70-1.30); Calcium 8.9 mg/dL (8.5-10.1); Chloride 103 mmol/L (98-107); Estimated GFR 50.11 (mL/min/1.73m2); Glucose 112 mg/dL (70-100); Potassium 4.5 mmol/L (3.5-5.1); Sodium 140 mmol/L (136-145)
== END 2018-08-31 12:48 ==
LOC: LBO 12:34 → LBN 12:35
PROVIDERS: Visit Provider Nurse Practitioner Adult Health
DX: E10.40 Type 1 diabetes mellitus with diabetic neuropathy, unspecified (principal)
CPT/HCPCS: 36415; 80048

== ENCOUNTER 2018-09-17 09:37 | Outpatient (REF) | payer MEDICAID, SELFPAY ==
[2018-09-17 11:55] LABS: VALPROIC ACID 53.2 ug/mL (50-100)
== END 2018-09-17 09:57 ==
LOC: LBN 09:37
PROVIDERS: Visit Provider Nurse Practitioner Adult Health
DX: F31.89 Other bipolar disorder (principal); Z51.81 Encounter for therapeutic drug level monitoring; Z79.899 Other long term (current) drug therapy
CPT/HCPCS: 80164

== ENCOUNTER 2018-10-05 10:39 | Outpatient (CLI) | payer MEDICAID, SELFPAY ==
[2018-10-05 13:24] LABS: Anion Gap 8.5 mmol/L (3-11); BUN 30 mg/dL (7-18); CO2 27.5 mmol/L (21.0-32.0); CREATININE 1.54 mg/dL (0.70-1.30); Calcium 8.6 mg/dL (8.5-10.1); Chloride 104 mmol/L (98-107); Estimated GFR 47.86 (mL/min/1.73m2); Glucose 145 mg/dL (70-100); Potassium 4.6 mmol/L (3.5-5.1); Sodium 140 mmol/L (136-145)
== END 2018-10-05 10:59 ==
PROVIDERS: PCP Nurse Practitioner Family; Visit Provider Nurse Practitioner Adult Health
DX: E16.2 Hypoglycemia, unspecified (principal)
CPT/HCPCS: 80048

== ENCOUNTER 2018-11-12 02:52 | Outpatient (CLI) | payer MEDICAID, SELFPAY ==
--- NOTE | 2018-11-12 09:00 | DIABASSESS_ITS ---
DESCRIPTION: Timur Arauz presents for diabetes self management [facility] and staying with a family in [place] and going to [facility] 6 days a week. He is here with his caregiver who is concerned about his hypoglycemia. Timur states his anger management is improved and he still attends classes. He has a pillowcase maker and a counselor. He walks with a walker secondary to residual stroke effects. Timur states he eats no white bread. Breakfast of cereal, milk, coffee or eggs, lang, 2 toast or oatmeal, 2 toast. He eats lunch at [facility]. Supper is meat, potato, bread, klondike bar or 2 hotdogs with buns. A1c 8.3 Blood sugars: fasting 111 today, yesterday 82 pre lunch 199 pre supper 327 111 228 322 163 327 322 96 227 178 70 162 210 225 459 462 82 210 245 He takes 8 units Lantus in AM and 6 units in PM. He estimates he takes about 5 units Novolog daily. He did not bring in his insulin dosing scale. ASSESSMENT/INTERVENTION: Timur appears to have inadequate mealtime insulin and risks hypoglycemia in the morning with tight fasting blood sugars. Suggest decrease Lantus to 5units in PM. Calculated Novolog insulin dosing scale at 1 unit covers 26 grams carbohydrate and 1 unit corrects 90mg/dl. He is given a revised scale: 100-190 - 1 unit 191-280 - 2 units 281-370 - 3 units 370-460 - 4 units He reports symptoms of hypoglycemia and treats appropriately. Reviewed protocols with caregiver and what to do when he 'goes down'. Discussed Glucagon for him and he will discuss with provider. He would need it at [facility] and home. PLAN: Timur will follow this insulin dosing plan and report back early next week. Individual DSME/T __1__ units billed TIME IN: 0900 OUT: 0950 No DM group education series being offered at this time. ~11/17/18 TC from caregiver: Timur's blood sugars are better; fewer highs and lows; mostly in 100-200s. She calls also for concern that he is dizzy. Blood sugars normal not at risk for hypoglycemia. Explained unlikely due to change in insulin or blood sugars given he is in a normal range. Discussed hydration and blood pressure possibilities. She is encouraged to call his PCP immediately or if there is another episode. VF
== END 2018-11-12 03:12 ==
PROVIDERS: PCP Nurse Practitioner Family; Visit Provider Dietitian, Registered
DX: E11.9 Type 2 diabetes mellitus without complications (principal); Z79.4 Long term (current) use of insulin; Z71.3 Dietary counseling and surveillance
CPT/HCPCS: G0108

== ENCOUNTER 2018-11-19 08:57 | Emergency (ER) | payer MEDICAID, SELFPAY ==
[2018-11-19 09:02] VITALS: BP 110/71; PULSE 95; RESP 20; TEMP 36.6; O2SAT 98
--- NOTE | 2018-11-19 09:11 | W.ED.GENAD ---
Discharge Plan Disposition Patient Disposition: HOME Condition: Stable Discharge Details Chief Complaint: GenMedical Clinical Impression: General weakness Primary Care Provider: Amada Law ED Provider: John Dexter Home Meds and New Rx's Prescriptions: No Action ipratropium-albuterol 0.5 mg-3 mg(2.5 mg base)/3 mL solution for nebulization 3 ml IH Q8H RF: 0 bisacodyl [Dulcolax (bisacodyl)] 10 mg suppository 10 mg MA ONCE RF: 0 divalproex 500 mg tablet extended release 24 hr 1,000 mg PO BID RF: 0 (DME) lancets [OneTouch Delica Lancets] 1 EACH misc 1 ea Miscellaneous AC & HS Qty: 360 RF: 3 (DME) pen needle, diabetic [BD Ultra-Fine Orig Pen Needle] 1 EACH needle 1 ea Miscellaneous QID Qty: 300 RF: 3 (DME) OneTouch Verio 1 EACH strip 1 ea Miscellaneous AC & HS Qty: 400 RF: 3 buspirone 15 MG tablet 15 mg PO BID Qty: 60 RF: 0 Atorvastatin Calcium 10 MG tablet 10 mg PO DAILY Qty: 30 RF: 0 verapamil 40 MG tablet 40 mg PO HS Qty: 30 RF: 0 magnesium oxide 400 MG tablet 400 mg PO DAILY Qty: 30 RF: 0 fluoxetine [Prozac] 20 MG capsule 20 mg PO DAILY Qty: 30 RF: 0 fludrocortisone 0.1 MG tablet 0.1 mg PO BID Qty: 60 RF: 0 magnesium hydroxide [Milk of Magnesia] 400 MG/5 ML suspension 30 ml PO PRN RF: 0 Fleet Enema 133 ML enema 133 ml RC PRN RF: 0 acetaminophen [Tylenol Extra Strength] 500 MG tablet 1,000 mg PO Q6H PRN PRNRF: 0 dextrose [Glutose-15] 15 GM/37.5 GM gel 25 gm PO PRN PRNQty: 1 RF: 1 Glucagon Emergency Kit (human) 1 MG kit 1 mg IJ PRN PRNRF: 0 dextrose [Glutose-15] 15 GM/37.5 GM gel 15 gm PO DIRECTED PRNQty: 1 RF: 0 ranitidine HCl [Zantac] 150 MG tablet 150 mg PO BID RF: 0 lisinopril 10 MG tablet 10 mg PO DAILY RF: 0 Novolog Flexpen U-100 Insulin 300 UNITS/3 ML insulin pen 1 unit Sub-Q 0800,1200,1700 RF: 0 Novolog Flexpen U-100 Insulin 300 UNITS/3 ML insulin pen 0 units Sub-Q 0800,1200,1700 RF: 0 Lantus Solostar U-100 Insulin 300 UNITS/3 ML insulin pen 5 units Sub-Q HS RF: 0 Lyrica 100 mg Capsule 100 mg PO BID RF: 0 Discharge Instructions Instructions: Weakness (ED) Additional Instructions: Follow up with your primary care provider within 1-2 weeks especially if symptoms continue if you feel more ill or have new symptoms such as chest pain, fevers abdominal pain return to the emergency department Medical Decision Making 53 yo male with multiple medical problems comes in with chief complaint of general weaness, feeling lightheaded with standing and loose stools for several weeks. Denies chest pain, sob, headaches, vomit, abdominal pain, rashes. No recent travel. States his stools aren't liquid like they were when he had c diff yeras ago but they are softer. He is in no distress on exam with no abdominal tenderness and speaking in full sentences. He does appear mildly dehydrated likely causing part of his symptoms. Will give IVF and check for electrolyte abnoramlities and anemia. If he is able to provide stool sample will send for fecal pathogens and also c diff. Has no chest pain or sob so doubt entities such as acs or PE. No headaches and weakness is general, not unilateral, no symptoms to suggest ICH or cva at this time pt remains stable, ambulating on his own and no new symptoms. Labs show no acute abnormalities. Given continued reassuring exam and labs feel he is safe for d/c, advised f/u with pcp and return precautions given. He will go home with stool requisition kit given he had no diarrhea here Differential Diagnosis dehydration, electrolyte abnormality, c diff Lab Data Lab results reviewed: Yes I reviewed the patient's lab results. ECG Data Attestation: I personally reviewed and interpreted this ECG (s) as follows: Prior ECG tracings: available for review Interpretation: sinus rhythm, rate of 92, pr 126, no acute st t wave ischemic findings HPI General Mode of arrival: ambulatory. Date/Time Provider Initiated Documentation: 11/19/18 08:58. Limitations to Documentation: no limitations. Information obtained by: patient. History of Present Illness 53 year old M presents to the emergency department with the chief complaint of general weakness, described as moderate, Patient started experiencing this week(s) (2) and it has been constant. No relieving factors improve symptom(s), No exacerbating factors reported . Patient notes other (loose stools). Patient did receive the following treatments prior to arrival, none Related Data Home Medications Medication Instructions Recorded Confirmed lancets [OneTouch Delica Lancets] #360 ea 01/08/16 11/19/18 acetaminophen [Tylenol Extra 1,000 mg PO Q6H PRN PRN 02/26/16 11/19/18 Strength] pen needle, diabetic [BD #300 04/06/17 11/19/18 Ultra-Fine Orig Pen Needle] dextrose [Glutose-15] 25 gm PO PRN PRN #1 tube 05/15/17 11/19/18 OneTouch Verio #400 strip 07/01/17 11/19/18 buspirone 15 mg PO BID #60 tab-cap 09/23/17 11/19/18 fludrocortisone 0.1 mg PO BID #60 tab-cap 10/05/17 11/19/18 fluoxetine [Prozac] 20 mg PO DAILY #30 tab-cap 10/05/17 11/19/18 magnesium oxide 400 mg PO DAILY #30 tab-cap 10/05/17 11/19/18 verapamil 40 mg PO HS #30 tab-cap 10/05/17 11/19/18 Glucagon Emergency Kit (human) 1 mg IJ PRN PRN 10/29/17 11/19/18 Lantus Solostar U-100 Insulin 5 units SUB-Q HS pen 11/26/17 11/19/18 Novolog Flexpen U-100 Insulin 0 units SUB-Q 0800,1200,1700 pen 11/26/17 11/19/18 Novolog Flexpen U-100 Insulin 1 unit SUB-Q 0800,1200,1700 pen 11/26/17 11/19/18 dextrose [Glutose-15] 15 gm PO DIRECTED PRN #1 tube 11/26/17 11/19/18 lisinopril 10 mg PO DAILY tab 11/26/17 11/19/18 ranitidine HCl [Zantac] 150 mg PO BID tab 11/26/17 11/19/18 Fleet Enema 133 ml RC PRN enema 12/21/17 11/19/18 magnesium hydroxide [Milk of 30 ml PO PRN ml 12/21/17 11/19/18 Magnesia] bisacodyl 10 mg rectal suppository 10 mg MA ONCE 02/09/18 11/19/18 divalproex 500 mg tablet,extended 1,000 mg PO BID tab 02/09/18 11/19/18 release 24 hr ipratropium-albuterol 0.5 mg-3 3 ml IH Q8H 02/09/18 11/19/18 mg(2.5 mg base)/3 mL nebulization soln Lyrica 100 mg PO BID 05/06/18 11/19/18 Previous Rx's Medication Instructions Recorded pen needle, diabetic [BD #300 04/06/17 Ultra-Fine Orig Pen Needle] dextrose [Glutose-15] 25 gm PO PRN PRN #1 tube 05/15/17 OneTouch Verio #400 strip 07/01/17 buspirone 15 mg PO BID #60 tab-cap 09/23/17 fludrocortisone 0.1 mg PO BID #60 tab-cap 10/05/17 fluoxetine [Prozac] 20 mg PO DAILY #30 tab-cap 10/05/17 magnesium oxide 400 mg PO DAILY #30 tab-cap 10/05/17 verapamil 40 mg PO HS #30 tab-cap 10/05/17 Lantus Solostar U-100 Insulin 5 units SUB-Q HS pen 11/26/17 Novolog Flexpen U-100 Insulin 0 units SUB-Q 0800,1200,1700 pen 11/26/17 Novolog Flexpen U-100 Insulin 1 unit SUB-Q 0800,1200,1700 pen 11/26/17 dextrose [Glutose-15] 15 gm PO DIRECTED PRN #1 tube 11/26/17 lisinopril 10 mg PO DAILY tab 11/26/17 ranitidine HCl [Zantac] 150 mg PO BID tab 11/26/17 Allergies Allergy/AdvReac Type Severity Reaction Status Date / Time No Known Drug Allergies Allergy none Unverified 11/19/18 09:05 General Stated Complaint: GenMedical ESTEFANIA: 3 Review of Systems Review of Systems All systems reviewed & are unremarkable except as noted in HPI and below Constitutional Denies chills and Denies fever(s) Cardiovascular Denies chest pain and Denies dyspnea Respiratory Denies cough and Denies dyspnea Gastrointestinal Denies abdominal pain, Denies nausea and Denies vomiting PFSH Social History Smoking/Tobacco Use Status: Former Tobacco Use Alcohol Intake: former Drug use: Occasionally Substance use type: does not use Housing: shelter Do you feel safe at home: Yes Do you feel safe in your relationship?: Yes Exam Const General: no acute distress Orientation: alert HENMT Head: normal to inspection Ears: external ears normal General nose exam: external nose normal Mouth: moist mucous membranes Eyes General: appearance normal, both eyes and all related structures Neck Neck: normal visual inspection Resp Effort & Inspection: normal respiratory effort and able to speak in complete sentences Cardio Rate: regular rate GI Inspection: normal to inspection Palpation: soft Skin General skin exam: no rashes or lesions noted Neuro General: alert and oriented x3 Extrem General: normal to inspection Psych Mental Status: mental status grossly normal Course Vital Signs Temperature 36.6 C 11/19/18 09:02 Pulse 95 H 11/19/18 09:02 Respiratory Rate 20 11/19/18 09:02 Blood Pressure 110/71 11/19/18 09:02 Pulse Oximetry 98 11/19/18 09:02 Temperature 36.6 C 11/19/18 09:02 Pulse 95 H 11/19/18 09:02 Respiratory Rate 20 11/19/18 09:02 Respiratory Effort Non-Labored 11/19/18 09:02 Blood Pressure 110/71 11/19/18 09:02 Blood Pressure Position Sitting 11/19/18 09:02 Pulse Oximetry 98 11/19/18 09:02 Oxygen Delivery Method Room Air 11/19/18 09:02 Oxygen Flow Rate 0 11/19/18 09:02 Pain Level 0 11/19/18 09:02
[2018-11-19] MEDS: Normal Saline 1,000 ML 1000 ML IV (09:19)
[2018-11-19 09:20] VITALS: RESP 16
[2018-11-19 09:20] LABS: BE (Venous) 6.1 mmol/L (-3-3); HCO3 (Venous) 31 mmol/L (22-28); O2 Sat (Venous) 38 % (70-80); TCO2 (Venous) 29 mmol/L (22-29); pCO2 (Venous) 52 mm/Hg (34-47); pH (Venous) 7.39 (7.32-7.43); pO2 (Venous) 23 mm/Hg (28-44)
[2018-11-19 09:25] LABS: Abs Immature Grans 0.01 k/cumm (0.0-0.09); Absolute Basophil Count 0.01 k/cumm (0.0-0.2); Absolute Eosinophil Count 0.07 k/cumm (0.0-0.7); Absolute Lymphocyte Count 2.04 k/cumm (1.2-3.4); Absolute Monocyte Count 0.63 k/cumm (0.11-0.7); Absolute Neutrophil Count 2.91 k/cumm (1.2-6.7); Basophils % 0.2; Eosinophils % 1.2; HCT 39.3 % (40.0-50.0); HGB 13.4 g/dL (13.5-17.5); Immature Grans % 0.2; Mean Corp. HGB Concentration 34.1 g/dL (32.0-36.0); Mean Corpuscular Hemoglobin 30.3 pg (27.0-33.0); Mean Corpuscular Volume 88.9 fL (80-95); Monocytes % 11.1; Neutrophils % 51.3; Platelet Count 203 x1000/uL (130-400); RBC 4.42 m/cumm (4.50-6.00); White Blood Cell Count 5.67 k/cumm (4.4-10.8)
[2018-11-19 09:39] LABS: ALT 58 U/L (12-78); AST 59 U/L (15-37); Albumin 2.8 g/dL (3.4-5.0); Alkaline Phosphatase 62 U/L (46-116); Anion Gap 6.2 mmol/L (3-11); BUN 26 mg/dL (7-18); Bilirubin, Total 0.3 mg/dL (0.2-1.0); CO2 30.8 mmol/L (21.0-32.0); CREATININE 1.46 mg/dL (0.70-1.30); Chloride 109 mmol/L (98-107); Glucose 117 mg/dL (70-100); Lipase 103 U/L (73-393); Sodium 146 mmol/L (136-145); Total Protein 6.7 g/dL (6.4-8.2)
[2018-11-19 09:43] LABS: PTT Activated 22.4 sec (21.0-31.4); Prothrombin Time 9.9 sec (9.3-11.0)
[2018-11-19 09:50] LABS: TSH (W/Ref FT4) 2.45 uIU/mL (0.36-3.74)
[2018-11-19 10:22] VITALS: BP 158/94; PULSE 88; RESP 14; TEMP 36.5; O2SAT 98
== END 2018-11-19 10:42 | disposition home or self-care (01) ==
PROVIDERS: Emergency Provider Emergency Medicine; PCP Nurse Practitioner Family
DX: R53.1 Weakness (principal); E86.0 Dehydration; R42 Dizziness and giddiness; E10.9 Type 1 diabetes mellitus without complications; I10 Essential (primary) hypertension
CPT/HCPCS: 36415; 80053; 82805; 83690; 93005; 96360; 99284; 81003; 83735; 84443; 85025; 85610; 85730; 93010

== ENCOUNTER 2018-11-23 11:19 | Outpatient (REF) | payer MEDICAID, SELFPAY ==
[2018-11-24 22:18] LABS: Specimen Description Feces
[2018-11-25 09:45] LABS: Result Positive
== END 2018-11-23 11:39 ==
LOC: LBN 11:19
PROVIDERS: PCP Nurse Practitioner Family; Visit Provider Emergency Medicine
DX: R19.7 Diarrhea, unspecified (principal)
CPT/HCPCS: 87505; 87324; 87798

== ENCOUNTER 2018-12-07 09:03 | Outpatient (REF) | payer MEDICAID, SELFPAY | END 2018-12-07 09:23 | LOC: NCHCN 09:03 | PROVIDERS: PCP Nurse Practitioner Family; Visit Provider Nurse Practitioner Family | DX: R19.7 Diarrhea, unspecified (principal); A04.72 Enterocolitis due to Clostridium difficile, not specified as recurrent | CPT/HCPCS: 87324 ==

== ENCOUNTER 2018-12-14 15:08 | Outpatient (REF) | payer MEDICAID, SELFPAY ==
[2018-12-14 19:05] LABS: HCT 35.4 % (40.0-50.0); HGB 11.9 g/dL (13.5-17.5); Mean Corp. HGB Concentration 33.6 g/dL (32.0-36.0); Mean Corpuscular Hemoglobin 30.1 pg (27.0-33.0); Mean Corpuscular Volume 89.6 fL (80-95); Mean Platelet Volume 11.5 fL (8.0-11.0); Platelet Count 285 x1000/uL (130-400); RBC 3.95 m/cumm (4.50-6.00); RBC Distribution Width 15.4 % (11.8-14.1); White Blood Cell Count 5.42 k/cumm (4.4-10.8)
[2018-12-14 19:22] LABS: Iron 90 ug/dL (50-175); Total Iron Binding Capacity 281 ug/dL (250-450); Transferrin Sat 32 % (20-55)
[2018-12-14 19:47] LABS: Anion Gap 7.2 mmol/L (3-11); BUN 23 mg/dL (7-18); CO2 28.8 mmol/L (21.0-32.0); CREATININE 1.67 mg/dL (0.70-1.30); Calcium 8.2 mg/dL (8.5-10.1); Calculated LDL 77 mg/dL; Chloride 104 mmol/L (98-107); Cholesterol 146 mg/dL (50-200); Estimated GFR 43.42 (mL/min/1.73m2); Ferritin 96 ng/mL (8-388); Glucose 235 mg/dL (70-100); HDL Cholesterol 57 mg/dL (40-60); Potassium 4.7 mmol/L (3.5-5.1); Sodium 140 mmol/L (136-145); Triglyceride 60 mg/dL (30-150)
[2018-12-14 19:50] LABS: Vitamin B12 > 2000 pg/mL (193-986)
[2018-12-16 05:51] LABS: Vitamin D 25 Total 43.9 ng/ml (30-100)
== END 2018-12-14 15:28 ==
LOC: NCHCN 15:08
PROVIDERS: PCP Nurse Practitioner Family; Visit Provider Nurse Practitioner Family
DX: I10 Essential (primary) hypertension (principal); E78.5 Hyperlipidemia, unspecified; E10.9 Type 1 diabetes mellitus without complications; R53.83 Other fatigue; F31.9 Bipolar disorder, unspecified
CPT/HCPCS: 80048; 80061; 82306; 83721; 85027; 82607; 82728; 83540; 83550

== ENCOUNTER 2018-12-23 08:10 | Outpatient (CLI) | payer MEDICAID, SELFPAY ==
[2018-12-23 10:20] LABS: ALT 36 U/L (16-63); AST 28 U/L (15-37); Albumin 1.7 g/dL (3.4-5.0); Alkaline Phosphatase 60 U/L (46-116); Anion Gap 8.8 mmol/L (3-11); BUN 26 mg/dL (7-18); Bilirubin, Total 0.4 mg/dL (0.2-1.0); CO2 29.2 mmol/L (21.0-32.0); CREATININE 1.52 mg/dL (0.70-1.30); Calcium 8.4 mg/dL (8.5-10.1); Chloride 106 mmol/L (98-107); Glucose 189 mg/dL (70-100); Potassium 4.6 mmol/L (3.5-5.1); Sodium 144 mmol/L (136-145)
[2018-12-24 12:53] LABS: C-Peptide 1.3 ng/mL (1.1 - 4.4)
[2018-12-24 15:16] LABS: Fructosamine 338 mcmol/L (200 - 285)
== END 2018-12-23 08:30 ==
PROVIDERS: PCP Nurse Practitioner Family; Visit Provider Internal Medicine Endocrinology, Diabetes & Metabolism
DX: E10.65 Type 1 diabetes mellitus with hyperglycemia (principal)
CPT/HCPCS: 36415; 80053; 82985; 84681

== ENCOUNTER 2018-12-30 12:06 | Emergency (ER) | payer MEDICAID, SELFPAY ==
[2018-12-30] VITALS (15 sets, daily range): BP systolic 102–176; BP diastolic 64–91; PULSE 75–87; RESP 14–21; TEMP 36.2; O2SAT 97–99
--- NOTE | 2018-12-30 12:12 | DI.RAD_ITS ---
SYMPTOMS/DIAGNOSIS: COUGH, CHILLS, FATIGUE, ? PNEUMONIA AP AND LATERAL CHEST: The heart is at the upper limits of normal in size. The lungs are clear and well expanded. No pleural effusion seen. CONCLUSION: No evidence of acute process.
[2018-12-30] MEDS: Insulin REGULAR-Human 100 UNITS/ML UNIT SC (12:25)
[2018-12-30] MEDS: Meclizine 25 MG TAB PO (12:25)
[2018-12-30] MEDS: Normal Saline 1,000 ML 1000 ML IV (12:25)
[2018-12-30 12:27] LABS: Abs Immature Grans 0.03 k/cumm (0.0-0.09); Absolute Basophil Count 0.01 k/cumm (0.0-0.2); Absolute Eosinophil Count 0.04 k/cumm (0.0-0.7); Absolute Lymphocyte Count 1.95 k/cumm (1.2-3.4); Absolute Monocyte Count 1.06 k/cumm (0.11-0.7); Absolute Neutrophil Count 7.31 k/cumm (1.2-6.7); Basophils % 0.1; Eosinophils % 0.4; HCT 33.8 % (40.0-50.0); HGB 11.6 g/dL (13.5-17.5); Immature Grans % 0.3; Lymphocytes % 18.8; Mean Corp. HGB Concentration 34.3 g/dL (32.0-36.0); Mean Corpuscular Volume 90.4 fL (80-95); Mean Platelet Volume 10.6 fL (8.0-11.0); Monocytes % 10.2; Neutrophils % 70.2; Platelet Count 239 x1000/uL (130-400); RBC 3.74 m/cumm (4.50-6.00); RBC Distribution Width 15.7 % (11.8-14.1)
--- NOTE | 2018-12-30 12:33 | NUR.NOTE ---
iv fluids infusing as per mdo medicated as per mdoNursing Note:
--- NOTE | 2018-12-30 12:34 | W.ED.GENAD ---
Discharge Plan Disposition Patient Disposition: HOME Condition: Good Discharge Details Chief Complaint: Dizzy/Sync Clinical Impression: Acute dehydration, Peripheral vertigo, Acute hyperglycemia Primary Care Provider: Amada Law ED Provider: Darrick Kwon Home Meds and New Rx's Prescriptions: Continued ipratropium-albuterol 0.5 mg-3 mg(2.5 mg base)/3 mL solution for nebulization 3 ml IH Q8H RF: 0 bisacodyl [Dulcolax (bisacodyl)] 10 mg suppository 10 mg HI ONCE RF: 0 divalproex 500 mg tablet extended release 24 hr 1,000 mg PO BID RF: 0 (DME) lancets [OneTouch Delica Lancets] 1 EACH misc 1 ea Miscellaneous AC & HS Qty: 360 RF: 3 (DME) pen needle, diabetic [BD Ultra-Fine Orig Pen Needle] 1 EACH needle 1 ea Miscellaneous QID Qty: 300 RF: 3 (DME) OneTouch Verio 1 EACH strip 1 ea Miscellaneous AC & HS Qty: 400 RF: 3 buspirone 15 MG tablet 15 mg PO BID Qty: 60 RF: 0 Atorvastatin Calcium 10 MG tablet 10 mg PO DAILY Qty: 30 RF: 0 verapamil 40 MG tablet 40 mg PO HS Qty: 30 RF: 0 magnesium oxide 400 MG tablet 400 mg PO DAILY Qty: 30 RF: 0 fluoxetine [Prozac] 20 MG capsule 20 mg PO DAILY Qty: 30 RF: 0 fludrocortisone 0.1 MG tablet 0.1 mg PO BID Qty: 60 RF: 0 magnesium hydroxide [Milk of Magnesia] 400 MG/5 ML suspension 30 ml PO PRN RF: 0 Fleet Enema 133 ML enema 133 ml RC PRN RF: 0 acetaminophen [Tylenol Extra Strength] 500 MG tablet 1,000 mg PO Q6H PRN PRNRF: 0 dextrose [Glutose-15] 15 GM/37.5 GM gel 25 gm PO PRN PRNQty: 1 RF: 1 Glucagon Emergency Kit (human) 1 MG kit 1 mg IJ PRN PRNRF: 0 dextrose [Glutose-15] 15 GM/37.5 GM gel 15 gm PO DIRECTED PRNQty: 1 RF: 0 ranitidine HCl [Zantac] 150 MG tablet 150 mg PO BID RF: 0 lisinopril 10 MG tablet 10 mg PO DAILY RF: 0 Novolog Flexpen U-100 Insulin 300 UNITS/3 ML insulin pen 1 unit Sub-Q 0800,1200,1700 RF: 0 Novolog Flexpen U-100 Insulin 300 UNITS/3 ML insulin pen 0 units Sub-Q 0800,1200,1700 RF: 0 Lantus Solostar U-100 Insulin 300 UNITS/3 ML insulin pen 5 units Sub-Q HS RF: 0 Lyrica 100 mg Capsule 100 mg PO BID RF: 0 Discharge Instructions Instructions: Dehydration (ED), Dizziness (ED) Additional Instructions: Your laboratory work-up is returned, you are notably dehydrated, kidneys mildly reflect this. It is very important to drink thoroughly well at all times, I recommend 10 to 12 cups of water per day. Please continue to use your insulin and monitor your blood sugars closely. You likely have a mild viral upper respiratory infection causing her dizziness, congestion and mild cough. At this time the x-ray is negative for any evidence of pneumonia. Your CT scan of your head shows no evidence of bleed or new stroke. Your EKG and blood heart markers show no evidence of heart attack. If you notice any worsening of your symptoms, or any new symptoms such as vomiting, diarrhea, fever, chills, shortness of breath, chest pain, numbness, weakness, or fainting , please return immediately to the emergency department for reevaluation. Please follow up with your primary care provider as soon as possible for reassessment and reevaluation. As always, it was a pleasure participating in your medical care today. Referrals: Amada Law [Primary Care Provider] - Medical Decision Making This is a pleasant 53-year-old male with a past medical history of brittle diabetes which is poorly controlled, C. difficile infection, suspected stroke, mood disorders, and history of noncompliance. He presents today for evaluation of 24 to 48 hours of mild weakness, mild dizziness. He has not been eating and drinking well. He does admit to mild upper respiratory symptoms as well as a cough that is nonproductive. He admits to chills but no fever. Exam demonstrates notably dry mucous membranes, neurologic exam is benign shows no clinical evidence of acute stroke, hints exam has notable horizontal fatigable unilateral nystagmus, no evidence of vertical or rotatory, negative test of skew. Signs and symptoms appear consistent with mild peripheral vertigo most likely secondary to dehydration. He has had a few falls recently. On EMS arrival initial blood pressure was in the high 80s, he is given 2 to 300 cc of normal saline via IV on his transfer over, and by the time he arrived he had complete resolution of his hypotension. Differential at this time includes dehydration, mild peripheral vertigo, but also includes acute intracranial process secondary to his falls or stroke. Will perform cardiac work-up, rehydrate, evaluate for intracranial etiology and reassess. 1: [address] Nicholson there is no acute process for the head. There is evidence of previous old strokes, but no evidence of acute process. Chest x-ray negative for pneumonia or acute process per radiology. Laboratory work-up is returned relatively benign, hemoglobin is stable, no significant white count, platelets normal. Creatinine is elevated at 1.99. In April 2016 his creatinine was greater than 2, however his baseline seems to be around 1.6-1.7. Suspect mild acute kidney injury secondary to dehydration. We will continue to rehydrate here. We will give 3 units of subcu insulin there is elevated blood sugars, troponin EKG are benign at this time. 2:37 PM Repeat exam demonstrates improvement in hydration status, blood pressure continues to remain stable throughout the entire visit, no evidence of tachycardia. Patient feels well. He does still have mild horizontal nystagmus, which in the setting of a negative head CT scan, and no other clinical evidence of cerebellar infarct, I feel is likely secondary to peripheral etiology, most likely secondary to his mild dehydration. Hemoccult testing was performed and it is negative. Electrolytes are normal, patient ambulates at his baseline. At this time the patient feels well, we did contact his home care provider Brianne, discussed the case with her. She feels comfortable taking the patient home, we did offer contacting her manager case management for additional resources at home and she does not want this at this time. Recommend continued hydration at home, close monitoring of his insulin, close follow-up with his PCP. Will give meclizine for home use for suspected peripheral vertigo. Additionally the patient has no anion gap, electrolytes are stable, bicarb is normal, no suggestion of significant acidosis. Symptoms are inconsistent with HHN K or DKA. I have extensively reviewed the treatment plan and discharge instructions with the patient. I have addressed all patient concerns at this time. The patient was made aware of what symptoms to monitor for that would warrant a return to the emergency department. Discussed the plan with the patient, they demonstrate verbal understanding and agreement with our assessment and plan at this time. EKG 12: 08 Rate 83, intervals normal, sinus rhythm, no significant ST elevation or depression, no significant Q waves except for a very small Q waves in lead III. Slight nonspecific flattening of T wave in lead III. No evidence of STEMI. CRANIAL CT: Noncontrast cranial CT was performed. There is moderate generalized cerebral atrophy. 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 A subtle area of decreased attenuation in right temporal lobe appears to have been present on previous examination of 11/21/17 as well. No evidence of acute intracranial hemorrhage, mass effect or midline shift. The orbital and temporal bone structures appear intact. The mastoid air cells are clear bilaterally. There is mucoperiosteal thickening of maxillary, ethmoid and frontal sinuses consistent with mild chronic sinusitis. CONCLUSION: No evidence of acute intracranial process. Exam(s) a RAD:XR chest 2V PA & lateral SYMPTOMS/DIAGNOSIS: COUGH, CHILLS, FATIGUE, ? PNEUMONIA AP AND LATERAL CHEST: The heart is at the upper limits of normal in size. The lungs are clear and well expanded. No pleural effusion seen. CONCLUSION: No evidence of acute process. Ordered By: Darrick Kwon DO CC: HPI General Date/Time Provider Initiated Documentation: 12/30/18 12:14. HPI Narrative: This is a pleasant 53-year-old male with a past medical history of brittle diabetes which is poorly controlled, previous C. difficile infection, suspected stroke, mood disorders, and history of noncompliance presents today for evaluation of mild dizziness, weakness, and elevation in his blood sugars. Symptoms have been present for the last day or 2. He states that he has not been eating or drinking as much as he normally does. He does feel sick, he does admit to upper respiratory congestion but states that he is able to still breathe through his nose. He does have a cough that is nonproductive. He does admit to mild chills but denies fever. He denies any abdominal pain, vomiting, diarrhea. He denies any dark or tarry stools, but talking to his primary care provider apparently he has had some occasional blood in his stools in the past. Patient states that he has been taking his insulin as directed. He does admit to a few recent falls and worsening of his generalized weakness but denies any his head recently. Patient has no other complaints at this time. He denies any other modifying factors. Related Data Home Medications Medication Instructions Recorded Confirmed lancets [CollibraTouch Delica Lancets] #360 ea 01/08/16 11/19/18 acetaminophen [Tylenol Extra 1,000 mg PO Q6H PRN PRN 02/26/16 11/19/18 Strength] pen needle, diabetic [BD #300 04/06/17 11/19/18 Ultra-Fine Orig Pen Needle] dextrose [Glutose-15] 25 gm PO PRN PRN #1 tube 05/15/17 11/19/18 OneTouch Verio #400 strip 07/01/17 11/19/18 buspirone 15 mg PO BID #60 tab-cap 09/23/17 11/19/18 fludrocortisone 0.1 mg PO BID #60 tab-cap 10/05/17 11/19/18 fluoxetine [Prozac] 20 mg PO DAILY #30 tab-cap 10/05/17 11/19/18 magnesium oxide 400 mg PO DAILY #30 tab-cap 10/05/17 11/19/18 verapamil 40 mg PO HS #30 tab-cap 10/05/17 11/19/18 Glucagon Emergency Kit (human) 1 mg IJ PRN PRN 10/29/17 11/19/18 Lantus Solostar U-100 Insulin 5 units SUB-Q HS pen 11/26/17 11/19/18 Novolog Flexpen U-100 Insulin 0 units SUB-Q 0800,1200,1700 pen 11/26/17 11/19/18 Novolog Flexpen U-100 Insulin 1 unit SUB-Q 0800,1200,1700 pen 11/26/17 11/19/18 dextrose [Glutose-15] 15 gm PO DIRECTED PRN #1 tube 11/26/17 11/19/18 lisinopril 10 mg PO DAILY tab 11/26/17 11/19/18 ranitidine HCl [Zantac] 150 mg PO BID tab 11/26/17 11/19/18 Fleet Enema 133 ml RC PRN enema 12/21/17 11/19/18 magnesium hydroxide [Milk of 30 ml PO PRN ml 12/21/17 11/19/18 Magnesia] bisacodyl 10 mg rectal suppository 10 mg HI ONCE 02/09/18 11/19/18 divalproex 500 mg tablet,extended 1,000 mg PO BID tab 02/09/18 11/19/18 release 24 hr ipratropium-albuterol 0.5 mg-3 3 ml IH Q8H 02/09/18 11/19/18 mg(2.5 mg base)/3 mL nebulization soln Lyrica 100 mg PO BID 05/06/18 11/19/18 Previous Rx's Medication Instructions Recorded pen needle, diabetic [BD #300 04/06/17 Ultra-Fine Orig Pen Needle] dextrose [Glutose-15] 25 gm PO PRN PRN #1 tube 05/15/17 OneTouch Verio #400 strip 07/01/17 buspirone 15 mg PO BID #60 tab-cap 09/23/17 fludrocortisone 0.1 mg PO BID #60 tab-cap 10/05/17 fluoxetine [Prozac] 20 mg PO DAILY #30 tab-cap 10/05/17 magnesium oxide 400 mg PO DAILY #30 tab-cap 10/05/17 verapamil 40 mg PO HS #30 tab-cap 10/05/17 Lantus Solostar U-100 Insulin 5 units SUB-Q HS pen 11/26/17 Novolog Flexpen U-100 Insulin 0 units SUB-Q 0800,1200,1700 pen 11/26/17 Novolog Flexpen U-100 Insulin 1 unit SUB-Q 0800,1200,1700 pen 11/26/17 dextrose [Glutose-15] 15 gm PO DIRECTED PRN #1 tube 11/26/17 lisinopril 10 mg PO DAILY tab 11/26/17 ranitidine HCl [Zantac] 150 mg PO BID tab 11/26/17 Allergies Allergy/AdvReac Type Severity Reaction Status Date / Time No Known Drug Allergies Allergy none Unverified 12/30/18 12:09 General Stated Complaint: Dizzy/Sync ESTEFANIA: 3 Review of Systems Review of Systems All systems reviewed & are unremarkable except as noted in HPI and below PFSH Social History Smoking/Tobacco Use Status: Former Tobacco Use Alcohol Intake: former Drug use: Occasionally Substance use type: does not use Housing: assisted Do you feel safe at home: Yes Do you feel safe in your relationship?: Yes Exam Narrative Exam Narrative: 1.Const: Well-nourished, Well-developed, appearing stated age 2.Eyes: PERRL, no conjunctival injection, and symmetrical lids. 3.ENT: Atraumatic external nose and ears. Notably dry MM. Neck: Symmetric, trachea midline, No thyromegaly. 4.CVS: +S1/S2, No murmurs or gallops. Peripheral pulses 2+ and equal in all extremities. Brisk capillary refill in all extremities. 5.RESP: Unlabored respiratory effort. Clear to auscultation bilaterally. No wheezes rales or rhonchi 6.GI: Soft, Nontender/Nondistended, No hepatosplenomegaly. No guarding or rebound. 7.MSK: Normocephalic/Atraumatic, Extremities w/o deformity or ttp No cyanosis or clubbing, Normal movement of all extremities aside for the right foot which demonstrates mild chronic weakness secondary to suspected previous old strokes. 8.Skin: Warm, Dry. No rashes or lesions. 9.Neuro: provider relations consultant II-XII grossly intact. Sensation grossly intact, no focal neurologic deficits. All 6 cardinal planes of vision are fully intact. No evidence of rotatory or vertical nystagmus. Patient does not have notable horizontal nystagmus though, unidirectional and fatigable. The patient demonstrated a normal [id number], good dexterity. There was no evidence of dysdiadochokinesia. Patient was able to ambulate without difficulty. There was no wide-based gait. Sensation was intact bilaterally as well as muscle strength bilaterally for all extremities. Patient was able to verbalize butter cup with no slurring, or miss pronunciation. 10.Psych: (AAO) x3. Appropriate mood and affect Course Vital Signs Temperature 36.2 C L 12/30/18 12:03 Pulse 82 12/30/18 12:03 Respiratory Rate 14 12/30/18 12:03 Blood Pressure 131/76 12/30/18 12:03 Pulse Oximetry 97 12/30/18 12:03 Temperature 36.2 C L 12/30/18 12:03 Temperature Source Temporal Artery Scan 12/30/18 12:03 Pulse 82 12/30/18 12:03 Respiratory Rate 14 12/30/18 12:03 Respiratory Effort Non-Labored 12/30/18 12:07 Blood Pressure 131/76 12/30/18 12:03 Blood Pressure Position Supine 12/30/18 12:03 Pulse Oximetry 97 12/30/18 12:03 Oxygen Delivery Method Room Air 12/30/18 12:03 Oxygen Flow Rate 0 12/30/18 12:03 Pain Level 0 12/30/18 12:03 Lab/Test Results Lab/Test Results: Laboratory Tests Range/Units 12/30/18 12:15 WBC (4.4-10.8) k/cumm 10.40 RBC (4.50-6.00) m/cumm 3.74 L Hgb (13.5-17.5) g/dL 11.6 L Hct (40.0-50.0) % 33.8 L MCV (80-95) fL 90.4 MCH (27.0-33.0) pg 31.0 MCHC (32.0-36.0) g/dL 34.3 RDW (11.8-14.1) % 15.7 H Plt Count (130-400) x1000/uL 239 MPV (8.0-11.0) fL 10.6 Immature Gran % 0.3 Neutrophils % 70.2 Lymphocytes % 18.8 Monocytes % 10.2 Eosinophils % 0.4 Basophils % 0.1 Absolute Neutrophils (1.2-6.7) k/cumm 7.31 H Absolute Lymphocytes (1.2-3.4) k/cumm 1.95 Absolute Monocytes (0.11-0.7) k/cumm 1.06 H Absolute Eosinophils (0.0-0.7) k/cumm 0.04 Absolute Basophils (0.0-0.2) k/cumm 0.01
[2018-12-30 12:50] LABS: ALT 39 U/L (16-63); AST 30 U/L (15-37); Albumin 2.4 g/dL (3.4-5.0); Alkaline Phosphatase 67 U/L (46-116); Anion Gap 6.7 mmol/L (3-11); BUN 26 mg/dL (7-18); Bilirubin, Total 0.2 mg/dL (0.2-1.0); CO2 28.3 mmol/L (21.0-32.0); CREATININE 1.99 mg/dL (0.70-1.30); Calcium 8.2 mg/dL (8.5-10.1); Chloride 106 mmol/L (98-107); Estimated GFR 35.47 (mL/min/1.73m2); Glucose 217 mg/dL (70-100); Potassium 4.9 mmol/L (3.5-5.1); Sodium 141 mmol/L (136-145); Total Protein 5.9 g/dL (6.4-8.2)
[2018-12-30 12:52] LABS: Troponin I < 0.05 ng/mL (0.00-0.06)
--- NOTE | 2018-12-30 13:18 | DI.CT_ITS ---
SYMPTOMS/DIAGNOSIS: DIZZY, RECENT FALLS, ? STROKE/BLEED CRANIAL CT: Noncontrast cranial CT was performed. There is moderate generalized cerebral atrophy. 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 A subtle area of decreased attenuation in right temporal lobe appears to have been present on previous examination of 11/21/17 as well. No evidence of acute intracranial hemorrhage, mass effect or midline shift. The orbital and temporal bone structures appear intact. The mastoid air cells are clear bilaterally. There is mucoperiosteal thickening of maxillary, ethmoid and frontal sinuses consistent with mild chronic sinusitis. CONCLUSION: No evidence of acute intracranial process.
--- NOTE | 2018-12-30 15:23 | NUR.NOTE ---
pt asissted with wheelchair dc Nursing Note:
== END 2018-12-30 15:15 | disposition home or self-care (01) ==
PROVIDERS: Emergency Provider Student in an Organized Health Care Education/Training Program; PCP Nurse Practitioner Family
DX: E86.0 Dehydration (principal); H81.90 Unspecified disorder of vestibular function, unspecified ear; E11.65 Type 2 diabetes mellitus with hyperglycemia; I10 Essential (primary) hypertension; Z79.4 Long term (current) use of insulin
CPT/HCPCS: 36415; 36416; 80053; 82962; 93005; 96360; 96372; 99285; 70450; 71046; 84484; 85025; 93010

== ENCOUNTER 2019-01-10 08:06 | Outpatient (CLI) | payer MEDICAID, SELFPAY ==
[2019-01-10 09:01] LABS: VALPROIC ACID 84.9 ug/mL (50-100)
== END 2019-01-10 08:26 ==
PROVIDERS: PCP Nurse Practitioner Family; Visit Provider Nurse Practitioner Family
DX: F31.9 Bipolar disorder, unspecified (principal); Z79.899 Other long term (current) drug therapy; Z51.81 Encounter for therapeutic drug level monitoring
CPT/HCPCS: 36415; 80164

== ENCOUNTER 2019-01-21 01:36 | Outpatient (CLI) | payer MEDICAID, SELFPAY ==
--- NOTE | 2019-01-21 15:39 | DI.MRI_ITS ---
EXAM: MR LOWER JOINT RT WO CLINICAL HISTORY: RT HIP PAIN [id number]. TECHNIQUE: Multiplanar multisequence MRI was performed. COMPARISON: MRI R LOWER JOINT WO CONT from 11/03/2017 MRI R LOWER JOINT WO CONT from 11/03/2017 FINDINGS: Bony signal of the pelvis and hip appears within normal limits bilaterally. No significant soft tiss ue signal abnormality identified. No ligamentous or tendinous abnormality. No evidence of avascular necrosis. No pelvic mass or adenopathy. IMPRESSION: Negative hip MRI
== END 2019-01-21 01:56 ==
PROVIDERS: PCP Nurse Practitioner Family; Visit Provider Orthopaedic Surgery
DX: M25.551 Pain in right hip (principal)
CPT/HCPCS: 73721

== ENCOUNTER 2019-01-21 14:59 | Outpatient (CLI) | payer MEDICAID, SELFPAY ==
[2019-01-24 11:41] LABS: Hepatitis C Ab w Rflx HCV PCR Negative (NEGAT)
== END 2019-01-21 15:19 ==
PROVIDERS: PCP Nurse Practitioner Family; Visit Provider Internal Medicine Endocrinology, Diabetes & Metabolism
DX: E10.65 Type 1 diabetes mellitus with hyperglycemia (principal); E88.09 Other disorders of plasma-protein metabolism, not elsewhere classified; R42 Dizziness and giddiness; T14.8XXA Other injury of unspecified body region, initial encounter; Z11.59 Encounter for screening for other viral diseases
CPT/HCPCS: 36415; 86803

== ENCOUNTER 2019-01-22 16:53 | Emergency (ER) | payer MEDICAID, SELFPAY ==
[2019-01-22 16:57] VITALS: BP 138/78; PULSE 87; RESP 20; TEMP 36.5; O2SAT 98
[2019-01-22] MEDS: Acetaminophen 500 MG TAB 1000 MG PO (17:22)
--- NOTE | 2019-01-22 17:22 | ED.GENADUL_ITS ---
Discharge Plan Disposition Patient Disposition: HOME Condition: Good Discharge Details Chief Complaint: Orthopedic Clinical Impression: Finger fracture, left Primary Care Provider: Amada Law ED Provider: Odilia Lang Home Meds and New Rx's Prescriptions: No Action divalproex 500 mg tablet extended release 24 hr 1,000 mg PO BID RF: 0 Adult 50+ Probiotic 4 billion cell capsule 4,000 mmu cells PO DAILY RF: 0 (DME) lancets [OneTouch Delica Lancets] 1 EACH misc 1 ea Miscellaneous AC & HS Qty: 360 RF: 3 (DME) pen needle, diabetic [BD Ultra-Fine Orig Pen Needle] 1 EACH needle 1 ea Miscellaneous QID Qty: 300 RF: 3 (DME) OneTouch Verio 1 EACH strip 1 ea Miscellaneous AC & HS Qty: 400 RF: 3 buspirone 15 MG tablet 15 mg PO BID Qty: 60 RF: 0 Atorvastatin Calcium 10 MG tablet 10 mg PO DAILY Qty: 30 RF: 0 verapamil 40 MG tablet 40 mg PO HS Qty: 30 RF: 0 fluoxetine [Prozac] 20 MG capsule 20 mg PO DAILY Qty: 30 RF: 0 fludrocortisone 0.1 MG tablet 0.1 mg PO BID Qty: 60 RF: 0 acetaminophen [Tylenol Extra Strength] 500 MG tablet 1,000 mg PO Q6H PRN PRNRF: 0 Glucagon Emergency Kit (human) 1 MG kit 1 mg IJ PRN PRNRF: 0 dextrose [Glutose-15] 15 GM/37.5 GM gel 15 gm PO DIRECTED PRNQty: 1 RF: 0 ranitidine HCl [Zantac] 150 MG tablet 150 mg PO BID RF: 0 lisinopril 10 MG tablet 10 mg PO DAILY RF: 0 Novolog Flexpen U-100 Insulin 300 UNITS/3 ML insulin pen 1 unit Sub-Q 0800,1200,1700 RF: 0 pregabalin [Lyrica] 100 mg Capsule 100 mg PO BID RF: 0 atorvastatin 10 mg Tablet 10 mg PO DAILY RF: 0 Lantus Solostar U-100 Insulin 300 UNITS/3 ML insulin pen 4 - 6 units Sub-Q BID RF: 0 Discharge Instructions Instructions: Finger Fracture (ED) Additional Instructions: Rest. Activities as tolerated. Elevate injury to prevent swelling. Ice to the area of discomfort for 15 min. 3-5 times daily. Keep finger splinted until follow-up with orthopedic Tylenol every 6 hours for soreness if needed over the counter for comfort. Followup with orthopedic doctor for reevaluation of your finger fracture. Return for any worsening or concerns sooner if needed. 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 Patient presents with a deformity to the left fifth finger with complaints of left fifth metacarpal tenderness in addition. Small abrasion to the elbow without obvious bony injury at this site. X-rays ordered for the left hand and Tylenol offered. Patient with a minimally displaced fracture of the proximal fifth phalanx without joint involvement or dislocation. Patient's finger was splinted appropriately. Distal neurovascularly in place after splint placement. Spoke with his care navigator and agency regarding appropriate care and follow-up with orthopedic doctor. The patient was stable. Prior to discharge, my usual and customary return precautions were reviewed with the patient - this included follow-up instructions and reasons to return to the Emergency Department if conditions worsens, does not improve as expected, or other new concerns arise. HPI General Date/Time Provider Initiated Documentation: 01/22/19 17:12 . HPI Narrative: 53-year-old brittle diabetic patient presents for an injury to his left fifth finger. Patient accidentally got his hand stuck in the headboard of his bed. Denies significant fall to the ground. Patient reports he mildly lost his balance which is not atypical. Patient typically walks with a walker as he does have a history of frequent falls and dizziness. This was no different. Patient reports angulation to his fifth finger and concern for possible fracture. Patient denies any numbness, tingling or weakness associated area pain worse with range of motion or palpation of the site. No open wounds on the hand. Small abrasion to the medial left elbow without pain associated at the site.. No other concerns or complaints at this time. Related Data Home Medications Medication Instructions Recorded Confirmed lancets [OneTouch Delica Lancets] #360 ea 01/08/16 11/19/18 acetaminophen [Tylenol Extra 1,000 mg PO Q6H PRN PRN 02/26/16 01/22/19 Strength] pen needle, diabetic [BD #300 04/06/17 11/19/18 Ultra-Fine Orig Pen Needle] [employer] Verio #400 strip 07/01/17 11/19/18 buspirone 15 mg PO BID #60 tab-cap 09/23/17 01/22/19 fludrocortisone 0.1 mg PO BID #60 tab-cap 10/05/17 01/22/19 fluoxetine [Prozac] 20 mg PO DAILY #30 tab-cap 10/05/17 01/22/19 verapamil 40 mg PO HS #30 tab-cap 10/05/17 01/22/19 Glucagon Emergency Kit (human) 1 mg IJ PRN PRN 10/29/17 11/19/18 Novolog Flexpen U-100 Insulin 1 unit SUB-Q 0800,1200,1700 pen 11/26/17 01/22/19 dextrose [Glutose-15] 15 gm PO DIRECTED PRN #1 tube 11/26/17 01/22/19 lisinopril 10 mg PO DAILY tab 11/26/17 01/22/19 ranitidine HCl [Zantac] 150 mg PO BID tab 11/26/17 01/22/19 divalproex 500 mg tablet,extended 1,000 mg PO BID tab 02/09/18 01/22/19 release 24 hr pregabalin [Lyrica] 100 mg PO BID 05/06/18 01/22/19 lactobacillus combination no.9 4 4,000 mmu cells PO DAILY 01/03/19 01/22/19 billion cell capsule Lantus Solostar U-100 Insulin 4 - 6 units SUB-Q BID 01/22/19 01/22/19 atorvastatin 10 mg PO DAILY 01/22/19 01/22/19 Previous Rx's Medication Instructions Recorded pen needle, diabetic [BD #300 04/06/17 Ultra-Fine Orig Pen Needle] [employer] Verio #400 strip 07/01/17 buspirone 15 mg PO BID #60 tab-cap 09/23/17 fludrocortisone 0.1 mg PO BID #60 tab-cap 10/05/17 fluoxetine [Prozac] 20 mg PO DAILY #30 tab-cap 10/05/17 verapamil 40 mg PO HS #30 tab-cap 06/11/18 Novolog Flexpen U-100 Insulin 1 unit SUB-Q 0800,1200,1700 pen 11/26/17 dextrose [Glutose-15] 15 gm PO DIRECTED PRN #1 tube 11/26/17 lisinopril 10 mg PO DAILY tab 11/26/17 ranitidine HCl [Zantac] 150 mg PO BID tab 11/26/17 Allergies Allergy/AdvReac Type Severity Reaction Status Date / Time No Known Drug Allergies Allergy none Unverified 01/22/19 17:01 General Stated Complaint: Orthopedic ESTEFANIA: 4 Review of Systems Review of Systems ROS Unobtainable: All systems reviewed & are unremarkable except as noted in HPI and below Constitutional Constitutional: Reports frequent falls Musculoskeletal Musculoskeletal: Reports deformity, Reports limited range of motion and Denies numbness Integumentary/Breasts Skin/Breast: Denies erythema, Denies unusual bruising and Reports wounds Neurologic Neurologic: Reports frequent falls and Denies numbness PFSH Social History Smoking/Tobacco Use Status: Former Tobacco Use Alcohol Intake: former Substance use type: does not use Housing: skilled nursing Do you feel safe at home: Yes Do you feel safe in your relationship?: Yes Exam Narrative Exam Narrative: CONST: Healthy appearing patient, in no acute distress. Well hydrated. Alert and alert. NECK: Normal visual inspection. FROM. Trachea midline. No Midline tenderness. MUSCULOSKELETAL: Normal Gait. No left shoulder pain with palpation, humeral pain with palpation. No elbow pain with palpation, small abrasion present at the elbow. No forearm or wrist pain with palpation. Full range of motion at the site. No pain with supination pronation of the left arm. Obvious deformity noted to the left fifth finger. Pain to palpation along the fifth meta carpal as well. No open wounds associated. SKIN: Normal. Dry. No rashes. NEURO: Alert and awake. Speech clear. PSYCH: Normal affect. Cooperative. Course Vital Signs Vital signs: Vital Signs Temperature 36.5 C 01/22/19 16:57 Pulse 87 01/22/19 16:57 Respiratory Rate 20 01/22/19 16:57 Blood Pressure 138/78 01/22/19 16:57 Pulse Oximetry 98 01/22/19 16:57 Temperature 36.5 C 01/22/19 16:57 Temperature Source Skin 01/22/19 16:57 Pulse 87 01/22/19 16:57 Respiratory Rate 20 01/22/19 16:57 Respiratory Effort Non-Labored 01/22/19 17:07 Blood Pressure 138/78 01/22/19 16:57 Blood Pressure Position Sitting 01/22/19 16:57 Pulse Oximetry 98 01/22/19 16:57 Oxygen Delivery Method Room Air 01/22/19 16:57 Oxygen Flow Rate 0 01/22/19 16:57 Pain Level 8 01/22/19 16:57 Procedures Orthopedic Splinting/Casting Injury #1: Side: left Upper Extremity Injury Location: finger Upper Extremity Immobilizer: finger (other) Additional Comments: Universe of a finger splint strikes patient at the proximal phalanx and uncomfortable faction therefore Ortho-Glass splint was made along the lateral aspect of the fifth digit to support his fracture with an Bert wrap. Distal neurovascularly intact after splint placement.
--- NOTE | 2019-01-22 17:34 | DI.RAD_ITS ---
EXAM: XR HAND LT COMPLETE CLINICAL HISTORY: pain 5th digit and metacarpal r/o fx vs dislocate. TECHNIQUE: 2D digital imaging was performed. COMPARISON: LEFT HAND COMPLETE from 11/15/2014 FINDINGS: BONES: There is a comminuted mildly displaced fracture involving the diaphysis of the proximal phalan x of the left little finger. The fracture does not extend into the articular space. No other fractu res or dislocations are present. JOINTS: No dislocation present. SOFT TISSUE: Surgical clips are seen in the soft tissues of the distal forearm and wrist. IMPRESSION: Comminuted mildly displaced fracture involving the proximal phalanx of the left little finger. There is no extension to the articular surface.
--- NOTE | 2019-01-22 17:54 | DI.VRAD_ITS ---
PROCEDURE INFORMATION: Exam: XR Left Hand Exam date and time: 01/22/2019 5:35 PM Clinical history: 53 years old, male; Other: Pain 5th digit, and metacarpal R/O FX vs dislocation TECHNIQUE: Imaging protocol: XR Left hand. Views: 3 or more views. COMPARISON: CR LEFT HAND COMPLETE 04/11/2015 11:50 AM FINDINGS: Bones/joints: Acute fracture in the proximal phalanx of the fifth digit with minimal displacement. There is mild comminution. There is no extension to the articular surface. Soft tissues: Surgical clips seen in the wrist and hand. IMPRESSION: Acute fracture in the proximal phalanx of the fifth digit with minimal displacement. There is mild comminution. There is no extension to the articular surface. Dictated and Authenticated by: Segundo Young MD. Ordering:JUANJO Hartley MD
== END 2019-01-22 18:46 | disposition home or self-care (01) ==
PROVIDERS: Emergency Provider Physician Assistant; PCP Nurse Practitioner Family
DX: S62.616A Displaced fracture of proximal phalanx of right little finger, initial encounter for closed fracture (principal); W23.1XXA Caught, crushed, jammed, or pinched between stationary objects, initial encounter; E11.9 Type 2 diabetes mellitus without complications; I10 Essential (primary) hypertension; Z79.4 Long term (current) use of insulin
CPT/HCPCS: 26720; 73130

== ENCOUNTER 2019-02-02 10:25 | Outpatient (CLI) | payer MEDICAID, SELFPAY ==
--- NOTE | 2019-02-02 09:25 | DI.RAD_ITS ---
EXAM: XR HAND LT COMPLETE INDICATION: F/U FRacture. COMPARISON: XR HAND LT COMPLETE from 01/22/2019 TECHNIQUE: 2D digital imaging was performed. FINDINGS: When compared with the previous examination of 01/22/2019, there has been no interval change in the al ignment of the fracture involving the proximal phalanx of the left 5th finger. There is nothing to rosario ggest that healing is not progressing satisfactorily at the present time.
== END 2019-02-02 10:45 ==
PROVIDERS: PCP Nurse Practitioner Family; Visit Provider Student in an Organized Health Care Education/Training Program
DX: S62.615D Displaced fracture of proximal phalanx of left ring finger, subsequent encounter for fracture with routine healing (principal)
CPT/HCPCS: 73130

== ENCOUNTER 2019-03-02 08:50 | Outpatient (CLI) | payer MEDICAID, SELFPAY ==
--- NOTE | 2019-03-02 08:43 | DI.RAD_ITS ---
EXAM: XR HAND LT COMPLETE CLINICAL HISTORY: F/U FRACTURE TECHNIQUE: Four views were obtained. COMPARISON: XR HAND LT COMPLETE from 02/02/2019 FINDINGS: The previously described fracture of the proximal phalanx of the little finger is again noted. There is callus formation at the fracture site. Mildly increased angulation of the distal fracture fragme nts is noted. There may be mild loss of length of the bone in comparison with the previous examinati on. No other change seen.
== END 2019-03-02 09:10 ==
PROVIDERS: PCP Nurse Practitioner Family; Visit Provider Student in an Organized Health Care Education/Training Program
DX: S62.617D Displaced fracture of proximal phalanx of left little finger, subsequent encounter for fracture with routine healing (principal)
CPT/HCPCS: 73130

== ENCOUNTER 2019-03-03 11:21 | Observation (INO) | payer MEDICAID, SELFPAY ==
[2019-03-03 11:55] VITALS: BP 94/64; PULSE 77; RESP 18; TEMP 36.3; O2SAT 99
[2019-03-03] MEDS: Normal Saline Flush 10 ML SYR IV (12:12)
[2019-03-03] MEDS: Lactated Ringers 1,000 ML 80 ML IV (12:55)
[2019-03-03] MEDS: Polyethylene Glycol 3350 238 GM BTL PO (18:30)
[2019-03-03] MEDS: Pregabalin 100 MG CAP PO (20:14)
[2019-03-03] MEDS: Divalproex Sodium 500 MG TAB.ER.24H 1000 MG PO (20:14)
[2019-03-03] MEDS: busPIRone 15 MG TAB PO (20:15)
[2019-03-03] MEDS: Verapamil 80 MG TAB 40 MG PO (22:47)
[2019-03-03] MEDS: Melatonin 3 MG TAB 6 MG PO (22:48)
[2019-03-04 00:55] VITALS: BP 114/76; PULSE 65; RESP 16; TEMP 36.5; O2SAT 96
[2019-03-04] MEDS: Lactated Ringers 1,000 ML 80 ML IV (01:13)
[2019-03-04 04:05] VITALS: BP 135/80; PULSE 69; RESP 18; TEMP 37.1; O2SAT 97
--- NOTE | 2019-03-04 07:09 | W.PM.DSUDISC ---
Discharge Plan Disposition Patient Disposition: HOME Condition: Good Discharge Details Reason For Visit: COLONOSCOPY Admit Date/Time: 03/03/19 11:21 Admit Provider: Roberta Baum Attending Provider: Roberta Baum Primary Care Provider: Amada Law Home Meds and New Rx's Prescriptions: Continued divalproex 500 mg tablet extended release 24 hr 1,000 mg PO BID RF: 0 fludrocortisone 0.1 mg tablet 0.2 mg PO DAILY Qty: 180 RF: 3 Adult 50+ Probiotic 4 billion cell capsule 4,000 mmu cells PO DAILY RF: 0 (DME) lancets [OneTouch Delica Lancets] 1 EACH misc 1 ea Miscellaneous AC & HS Qty: 360 RF: 3 (DME) pen needle, diabetic [BD Ultra-Fine Orig Pen Needle] 1 EACH needle 1 ea Miscellaneous QID Qty: 300 RF: 3 (DME) OneTouch Verio 1 EACH strip 1 ea Miscellaneous AC & HS Qty: 400 RF: 3 buspirone 15 MG tablet 15 mg PO BID Qty: 60 RF: 0 Atorvastatin Calcium 10 MG tablet 10 mg PO DAILY Qty: 30 RF: 0 verapamil 40 MG tablet 40 mg PO HS Qty: 30 RF: 0 fluoxetine [Prozac] 20 MG capsule 20 mg PO DAILY Qty: 30 RF: 0 acetaminophen [Tylenol Extra Strength] 500 MG tablet 1,000 mg PO Q6H PRN PRNRF: 0 Glucagon Emergency Kit (human) 1 MG kit 1 mg IJ PRN PRNRF: 0 dextrose [Glutose-15] 15 GM/37.5 GM gel 15 gm PO DIRECTED PRNQty: 1 RF: 0 ranitidine HCl [Zantac] 150 MG tablet 150 mg PO BID RF: 0 lisinopril 10 MG tablet 10 mg PO DAILY RF: 0 Novolog Flexpen U-100 Insulin 300 UNITS/3 ML insulin pen 1 unit Sub-Q 0800,1200,1700 RF: 0 pregabalin [Lyrica] 100 mg Capsule 100 mg PO BID RF: 0 atorvastatin 10 mg Tablet 10 mg PO DAILY RF: 0 Lantus Solostar U-100 Insulin 300 UNITS/3 ML insulin pen 4 units Sub-Q HS RF: 0 melatonin 5 mg Tablet 5 mg PO HS RF: 0 Lantus Solostar U-100 Insulin 100 unit/mL (3 mL) Insulin Pen 6 unit SUBCUT DAILY AM RF: 0 Discharge Instructions Additional Instructions: Findings: Follow up: Please call if you develop: fevers >101.5 Nausea or Vomiting Abdominal pain that is not transient DAY SURGERY UNIT POST COLONOSCOPY INSTRUCTIONS 1. Because there will be medication in your system for the next 24 hours, you may feel a little sleepy. Your coordination will be affected. Therefore: a. Do not drive or operate dangerous equipment for 24 hours. b. Do not drink alcohol beverages for 24 hours (not even beer). c. Plan to go home and rest for the day. 2. Generally there are no restrictions on your activity after a day or so has gone by, but you may feel a bit fatigued for a few days. 3 After you arrive home you may have a light meal and return to a normal diet as you can tolerate it without feeling sick to your stomach. 4. After surgery, you may feel pain or discomfort. This should be only transient, but if it persists please contact your doctor. 5. If there are any questions regarding the findings of your procedure, please feel free to contact your doctor. 6. If you are unable to contact your doctor with a problem, contact the hospital at [phone]. 7. Continue all your regular medications unless directed otherwise. I understand the above instructions and have no questions. Signature of Patient or Responsible Adult Escort Date/Time Name of Responsible Adult Escort Signature of Nurse Date/Time Activity:: Activity as Tolerated Equipment/Supplies:: No Equipment Needed Diet:: As Tolerated
== END 2019-03-04 07:15 | disposition home or self-care (01) ==
PROVIDERS: Admitting Provider Surgery; PCP Nurse Practitioner Family; Visit Provider Surgery
DX: Z12.11 Encounter for screening for malignant neoplasm of colon (principal)
CPT/HCPCS: G0378; J3490

== ENCOUNTER 2019-03-04 06:58 | Day surgery (SDC) | payer MEDICAID, SELFPAY ==
--- NOTE | 2019-03-04 07:54 | W.PM.DSUDISC ---
Discharge Plan Disposition Patient Disposition: HOME Condition: Good Discharge Details Reason For Visit: Colonoscopy Attending Provider: Roberta Baum Primary Care Provider: Amada Law Home Meds and New Rx's Prescriptions: Continued divalproex 500 mg tablet extended release 24 hr 1,000 mg PO BID RF: 0 fludrocortisone 0.1 mg tablet 0.2 mg PO DAILY Qty: 180 RF: 3 Adult 50+ Probiotic 4 billion cell capsule 4,000 mmu cells PO DAILY RF: 0 (DME) lancets [OneTouch Delica Lancets] 1 EACH misc 1 ea Miscellaneous AC & HS Qty: 360 RF: 3 (DME) pen needle, diabetic [BD Ultra-Fine Orig Pen Needle] 1 EACH needle 1 ea Miscellaneous QID Qty: 300 RF: 3 (DME) OneTouch Verio 1 EACH strip 1 ea Miscellaneous AC & HS Qty: 400 RF: 3 buspirone 15 MG tablet 15 mg PO BID Qty: 60 RF: 0 Atorvastatin Calcium 10 MG tablet 10 mg PO DAILY Qty: 30 RF: 0 verapamil 40 MG tablet 40 mg PO HS Qty: 30 RF: 0 fluoxetine [Prozac] 20 MG capsule 20 mg PO DAILY Qty: 30 RF: 0 acetaminophen [Tylenol Extra Strength] 500 MG tablet 1,000 mg PO Q6H PRN PRNRF: 0 Glucagon Emergency Kit (human) 1 MG kit 1 mg IJ PRN PRNRF: 0 dextrose [Glutose-15] 15 GM/37.5 GM gel 15 gm PO DIRECTED PRNQty: 1 RF: 0 ranitidine HCl [Zantac] 150 MG tablet 150 mg PO BID RF: 0 lisinopril 10 MG tablet 10 mg PO DAILY RF: 0 Novolog Flexpen U-100 Insulin 300 UNITS/3 ML insulin pen 1 unit Sub-Q 0800,1200,1700 RF: 0 pregabalin [Lyrica] 100 mg Capsule 100 mg PO BID RF: 0 atorvastatin 10 mg Tablet 10 mg PO DAILY RF: 0 Lantus Solostar U-100 Insulin 300 UNITS/3 ML insulin pen 4 units Sub-Q HS RF: 0 melatonin 5 mg Tablet 5 mg PO HS RF: 0 Lantus Solostar U-100 Insulin 100 unit/mL (3 mL) Insulin Pen 6 unit SUBCUT DAILY AM RF: 0 Discharge Instructions Additional Instructions: Findings: Your colonoscopy was normal. Follow up: Plan for routine colon screening in 10 years Please call if you develop: fevers >101.5 Nausea or Vomiting Abdominal pain that is not transient DAY SURGERY UNIT POST COLONOSCOPY INSTRUCTIONS 1. Because there will be medication in your system for the next 24 hours, you may feel a little sleepy. Your coordination will be affected. Therefore: a. Do not drive or operate dangerous equipment for 24 hours. b. Do not drink alcohol beverages for 24 hours (not even beer). c. Plan to go home and rest for the day. 2. Generally there are no restrictions on your activity after a day or so has gone by, but you may feel a bit fatigued for a few days. 3 After you arrive home you may have a light meal and return to a normal diet as you can tolerate it without feeling sick to your stomach. 4. After surgery, you may feel pain or discomfort. This should be only transient, but if it persists please contact your doctor. 5. If there are any questions regarding the findings of your procedure, please feel free to contact your doctor. 6. If you are unable to contact your doctor with a problem, contact the hospital at [phone]. 7. Continue all your regular medications unless directed otherwise. I understand the above instructions and have no questions. Signature of Patient or Responsible Adult Escort Date/Time Name of Responsible Adult Escort Signature of Nurse Date/Time Stand Alone Forms: DSU Post op Instructions, Tasia Cortes (DSU) Activity:: Activity as Tolerated Diet:: As Tolerated Discharge Orders Discharge Orders: Discharge Order (Routine); Ordered 03/04/19 Ordered By: Roberta Baum DS: Diagnosis Discharge Diagnosis (1) Normal colonoscopy: Status: Acute
[2019-03-04 08:30] VITALS: BP 125/70; PULSE 70; RESP 16; TEMP 36.6; O2SAT 97
[2019-03-04] MEDS: Lactated Ringers 1,000 ML 80 ML IV (09:39)
--- NOTE | 2019-03-04 10:15 | COLE_ITS ---
DATE OF PROCEDURE: March 04, 2019 PREOPERATIVE DIAGNOSIS: Screening. POSTOPERATIVE DIAGNOSIS: Normal colon. PROCEDURE: Colonoscopy. SURGEON: Roberta Baum M.D. ANESTHESIA: General. INDICATIONS: This is a 53-year-old man who presents for his first screening colonoscopy. He is asym ptomatic and has no family history of colon cancer. The patient does have a history of some occasion al loose stool. He was treated for C diff, but recent testing was normal. PROCEDURE: He was placed in the left lateral decubitus position. Propofol was titrated to sedation. Digital rectal examination revealed some laxity of the sphincter tone. The scope was advanced to t he cecum with a small amount of abdominal pressure required. The ileocecal valve and appendiceal estela fice were clearly identified. The scope was slowly withdrawn with no abnormalities seen within the a scending, transverse, descending, sigmoid colon or rectum, including on retroflex view. He tolerated the procedure well and was stable to recovery. He will need a follow-up colonoscopy again in ten years or sooner if symptoms indicate. cc: Amada Law N.P.
== END 2019-03-04 10:25 | disposition home or self-care (01) ==
PROVIDERS: PCP Nurse Practitioner Family; Visit Provider Surgery
PROC: 0DJD8ZZ Inspection of Lower Intestinal Tract, Via Natural or Artificial Opening Endoscopic (ICD-10-PCS; CPT 45378; principal; 2019-03-04 07:30)
DX: Z12.11 Encounter for screening for malignant neoplasm of colon (principal); E10.9 Type 1 diabetes mellitus without complications; I69.398 Other sequelae of cerebral infarction
CPT/HCPCS: 45378

== ENCOUNTER 2019-04-05 11:13 | Outpatient (CLI) | payer MEDICAID, SELFPAY ==
--- NOTE | 2019-04-05 10:10 | DI.RAD_ITS ---
EXAM: XR HAND LT COMPLETE INDICATION: f/u fracture. COMPARISON: XR HAND LT COMPLETE from 03/02/2019 TECHNIQUE: 2D digital imaging was performed. FINDINGS: There has been no change in the alignment of the fracture of the proximal phalanx of the 5th finger. There is increased callus formation around the fracture. Surgical clips are again noted in the vent ral soft tissues of the hand and wrist.
== END 2019-04-05 11:33 ==
PROVIDERS: PCP Nurse Practitioner Family; Visit Provider Student in an Organized Health Care Education/Training Program
DX: S62.647D Nondisplaced fracture of proximal phalanx of left little finger, subsequent encounter for fracture with routine healing (principal)
CPT/HCPCS: 73130

== ENCOUNTER 2019-05-17 13:31 | Emergency (ER) | payer MEDICAID, SELFPAY ==
[2019-05-17] VITALS (17 sets, daily range): BP systolic 174–214; BP diastolic 92–125; PULSE 80–92; RESP 9–21; TEMP 37.2; O2SAT 84–99
--- NOTE | 2019-05-17 13:42 | W.ED.GENAD ---
Discharge Plan Disposition Patient Disposition: HOME Condition: Improving Discharge Details Chief Complaint: GenMedical Clinical Impression: Dysautonomia Primary Care Provider: Amada Law ED Provider: James Pardo Home Meds and New Rx's Prescriptions: Continued fludrocortisone 0.1 mg tablet 0.2 mg PO DAILY Qty: 180 RF: 3 Adult 50 Plus Probiotic 4 billion cell capsule 4,000 mmu cells PO DAILY RF: 0 fluoxetine [Prozac] 20 mg capsule 20 mg PO DAILY RF: 0 (DME) lancets [OneTouch Delica Lancets] 1 EACH misc 1 ea Miscellaneous AC & HS Qty: 360 RF: 3 (DME) pen needle, diabetic [BD Ultra-Fine Orig Pen Needle] 1 EACH needle 1 ea Miscellaneous QID Qty: 300 RF: 3 (DME) OneTouch Verio 1 EACH strip 1 ea Miscellaneous AC & HS Qty: 400 RF: 3 buspirone 15 MG tablet 15 mg PO BID Qty: 60 RF: 0 Atorvastatin Calcium 10 MG tablet 10 mg PO DAILY Qty: 30 RF: 0 acetaminophen [Tylenol Extra Strength] 500 MG tablet 1,000 mg PO Q6H PRN PRNRF: 0 Glucagon Emergency Kit (human) 1 MG kit 1 mg IJ PRN PRNRF: 0 dextrose [Glutose-15] 15 GM/37.5 GM gel 15 gm PO DIRECTED PRNQty: 1 RF: 0 ranitidine HCl [Zantac] 150 MG tablet 150 mg PO BID RF: 0 lisinopril 10 MG tablet 10 mg PO DAILY RF: 0 insulin aspart U-100 [Novolog Flexpen U-100 Insulin] 300 UNITS/3 ML insulin pen 1 unit Sub-Q 0800,1200,1700 RF: 0 pregabalin [Lyrica] 100 mg Capsule 100 mg PO BID RF: 0 melatonin 5 mg Tablet 5 mg PO HS RF: 0 Lantus Solostar U-100 Insulin 100 unit/mL (3 mL) Insulin Pen 6 unit SUBCUT DAILY AM RF: 0 divalproex 500 mg Tablet,Delayed Release (Dr/Ec) 1,000 mg PO BID RF: 0 Lantus Solostar U-100 Insulin 100 unit/mL (3 mL) Insulin Pen 4 unit SUBCUT HS RF: 0 verapamil 120 mg tablet 40 mg PO QHS RF: 0 Discharge Instructions Additional Instructions: Home to rest today. Continue your regularly prescribed medications. May use Tylenol and/or ibuprofen if needed for persistent aches or pains. Return to the emergency department for any acute concern. Please follow-up with Dr. Pace in clinic as previously scheduled. Medical Decision Making 53-year-old male with history of dysautonomia, hypertension, developmental delay. 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 He was brought by the ambulance, upon arrival blood pressure has improved to 174/98, patient is otherwise at baseline. He complains of a very mild headache. Patient given acetaminophen, fluid, referred for screening labs and CT scan of the head. Laboratories show us white count of 5.9, hematocrit 36, platelets are 207. BUN 20, creatinine 1.2. Electrolytes unremarkable, liver enzymes within normal limits and troponin is negative. CT scan of the head with no acute findings. See formal report. Following acetaminophen, fluids, observation the patient is improved without headache. Took some water without difficulty and also with improvement. Blood pressure improved to 174/98, did show some further lability. He is recently started calcium channel tricia at bedtime. Do not feel further aggressive management of blood pressure is indicated at this time. No evidence of intracranial process, no evidence of painful stimuli on my exam, he is stable and improving and will discharge to home. ECG Data Attestation: I personally reviewed and interpreted this ECG (s) as follows: Interpretation: Normal sinus rhythm, rate 85, QRS is narrow, nonspecific ST flattening in leads I and aVL, no ST segment elevation present. HPI General Mode of arrival: EMS. Date/Time Provider Initiated Documentation: 05/17/19 13:32. Limitations to Documentation: no limitations. Information obtained by: patient and EMS. History of Present Illness 53 year old M presents to the emergency department with the chief complaint of Elevated blood pressure and mild headache, described as mild, Quality is described as dull, and is localized to the head. Patient reports no radiation. Patient started experiencing this hour(s) and it has been constant. No relieving factors improve symptom(s), No exacerbating factors reported . Patient notes denies fever/chills, loss of appetite, nausea/vomiting and syncope. Patient did receive the following treatments prior to arrival, none Related Data Home Medications Medication Instructions Recorded Confirmed lancets [[employer] Delica Lancets] #360 ea 01/08/16 05/17/19 acetaminophen [Tylenol Extra 1,000 mg PO Q6H PRN PRN 02/26/16 05/17/19 Strength] pen needle, diabetic [BD #300 04/06/17 05/17/19 Ultra-Fine Orig Pen Needle] OneTouch Verio #400 strip 07/01/17 05/17/19 buspirone 15 mg PO BID #60 tab-cap 09/23/17 05/17/19 Glucagon Emergency Kit (human) 1 mg IJ PRN PRN 10/29/17 05/17/19 dextrose [Glutose-15] 15 gm PO DIRECTED PRN #1 tube 11/26/17 05/17/19 insulin aspart U-100 [Novolog 1 unit SUB-Q 0800,1200,1700 pen 11/26/17 05/17/19 Flexpen U-100 Insulin] lisinopril 10 mg PO DAILY tab 11/26/17 05/17/19 ranitidine HCl [Zantac] 150 mg PO BID tab 11/26/17 05/17/19 pregabalin [Lyrica] 100 mg PO BID 05/06/18 05/17/19 lactobacillus combination no.9 4 4,000 mmu cells PO DAILY 01/03/19 05/17/19 billion cell capsule Lantus Solostar U-100 Insulin 6 unit SUBCUT DAILY AM 03/03/19 05/17/19 melatonin 5 mg PO HS 03/03/19 05/17/19 divalproex 1,000 mg PO BID 03/04/19 05/17/19 fludrocortisone 0.1 mg tablet 0.2 mg PO DAILY #180 tab-cap 04/07/19 05/17/19 fluoxetine 20 mg capsule 20 mg PO DAILY tab-cap 05/11/19 05/17/19 Lantus Solostar U-100 Insulin 4 unit SUBCUT HS 05/17/19 05/17/19 verapamil 40 mg PO QHS 05/17/19 05/17/19 Previous Rx's Medication Instructions Recorded pen needle, diabetic [BD #300 04/06/17 Ultra-Fine Orig Pen Needle] OneTouch Verio #400 strip 07/01/17 buspirone 15 mg PO BID #60 tab-cap 09/23/17 dextrose [Glutose-15] 15 gm PO DIRECTED PRN #1 tube 11/26/17 insulin aspart U-100 [Novolog 1 unit SUB-Q 0800,1200,1700 pen 11/26/17 Flexpen U-100 Insulin] lisinopril 10 mg PO DAILY tab 11/26/17 ranitidine HCl [Zantac] 150 mg PO BID tab 11/26/17 fludrocortisone 0.1 mg tablet 0.2 mg PO DAILY #180 tab-cap 04/07/19 Allergies Allergy/AdvReac Type Severity Reaction Status Date / Time No Known Drug Allergies Allergy none Unverified 05/17/19 13:39 General Stated Complaint: GenMedical ESTEFANIA: 3 Review of Systems Narrative: History of dysautonomia. States he had mild recent URI. Eating and drinking normally, no vomiting, no fall or injury. 6 systems reviewed and otherwise negative [facility] Medical History Bipolar affective disorder in remission (Acute) Harshad Joel [facility] Clostridium difficile infection Depression Diabetic neuropathy, type I diabetes mellitus (Acute 03/15/14) Diabetic retinopathy Diabetic ulcer of right foot (Acute 03/15/14) culture: yeast & bacterial; MRI (-) for osteomyelitis DJD (degenerative joint disease) of cervical spine (Acute 07/26/15) DNR (do not resuscitate) (Acute 06/24/17) AD & COLST completed & in chart Essential hypertension (Acute 03/19/16) ETOH abuse Fracture, metacarpal (01/08/14) Displaced 5th R hand Gastric ulcer (Acute 05/29/16) [facility] (gastroesophageal reflux disease) Hemorrhagic stroke (Acute 08/25/16) [facility] [place] 08/25-09/12/2016 L intracerebral hemorrhage of basal ganglia/insula Residual right hemiparesis/neglect/dysarthria Hyperlipidemia (Acute 03/15/14) Incomplete bladder emptying (Acute 03/31/17) Insomnia (Acute 03/15/14) Orthostatic hypotension (Acute 08/02/15) Fludrocortisone d/c'ed 02/2016 when issues with hypertension Restarted while @ [facility] [Jan-Mar 2017][?[employer]ineopl[employer]]. Refilling @ d/c 03/2017, but requires re-evaluation (shannon 2' DM, recent falls @ home). ik Midodrine Hx shows Rx in 11/2016. Continued @ [facility] and on d/c. Re-evaluate (?urin ret'n, urin urgency). Pyridostigmine (30mg TID) @ [facility]. Hx shows Rx in 11/2016. Continued @ [facility] and on d/c. Re-evaluate [cholinergic/mm weakness, urin urgency]? Palmar space infection of left hand (Acute 06/06/15) 04/11/15 [facility] MSSA 1 month IV oxacillin; I&Dx4 Right foot drop (Acute) 2nd to stroke Tobacco use disorder (Acute 03/15/14) Uncontrolled type 1 diabetes mellitus (Acute 03/13/14) HbA1c goal </= 8% Numerous urgent/emergent actions required for high/low BG readings while @ [facility] (Nov-Mar 2017) Social History Smoking/Tobacco Use Status: Former Tobacco Use Alcohol Intake: former Substance use type: does not use Household members: caregiver Housing: [facility] current occupation: Disabled Current gender identity: male Do you feel safe at home: Yes Do you feel safe in your relationship?: Yes Additional Social history: Caregiver is Brianne; [employer]ola Exam Narrative Exam Narrative: GEN: awake, alert, oriented 3. Pleasant, well groomed, interactive. HEAD: Normocephalic, atraumatic ENT: Mucous membranes moist, oropharynx unremarkable, External ear exam unremarkable EYES: PERRL, EOMI NECK: Full ROM, no PB, no menigismus CHEST/RESP: Nontender, clear to auscultation bilateral, no wheeze/rhonchi/rales CARDIOVASCULAR: RRR, no murmur, rub eve. 2+ Rad pulse bilateral ABDOMEN: Soft, nontender, no mass. +Bowel sounds EXT: Right upper and lower extremity with muscle wasting and contraction, foot drop brace present Neuro: Grossly normal neurologic exam, conversant, interactive. Psych: Speech fluent, thoughts congruent, affect normal Course Vital Signs Vital signs: Vital Signs Temperature 37.2 C 05/17/19 13:32 Pulse 92 H 05/17/19 13:32 Respiratory Rate 05/17/19 13:32 Blood Pressure 174/98 H 05/17/19 13:32 Pulse Oximetry 99 05/17/19 13:32 Temperature 37.2 C 05/17/19 13:32 Temperature Source Skin 05/17/19 13:32 Pulse 92 H 05/17/19 13:32 Respiratory Rate 05/17/19 13:32 Respiratory Effort Non-Labored 05/17/19 13:32 Blood Pressure 174/98 H 05/17/19 13:32 Blood Pressure Position Supine 05/17/19 13:32 Pulse Oximetry 99 05/17/19 13:32 Oxygen Delivery Method Room Air 05/17/19 13:32 Oxygen Flow Rate 0 05/17/19 13:32 Pain Level 1 05/17/19 13:32
[2019-05-17] MEDS: Acetaminophen 500 MG TAB 1000 MG PO (13:52)
[2019-05-17 13:57] LABS: Abs Immature Grans 0.01 k/cumm (0.0-0.09); Absolute Basophil Count 0.01 k/cumm (0.0-0.2); Absolute Eosinophil Count 0.06 k/cumm (0.0-0.7); Absolute Lymphocyte Count 2.37 k/cumm (1.2-3.4); Absolute Monocyte Count 0.52 k/cumm (0.11-0.7); Absolute Neutrophil Count 2.97 k/cumm (1.2-6.7); Basophils % 0.2; HCT 36.2 % (40.0-50.0); HGB 12.4 g/dL (13.5-17.5); Immature Grans % 0.2 %; Lymphocytes % 39.9; Mean Corp. HGB Concentration 34.3 g/dL (32.0-36.0); Mean Corpuscular Hemoglobin 31.9 pg (27.0-33.0); Mean Corpuscular Volume 93.1 fL (80-95); Mean Platelet Volume 11.2 fL (8.0-11.0); Monocytes % 8.8; Neutrophils % 49.9; Platelet Count 207 x1000/uL (130-400); RBC 3.89 m/cumm (4.50-6.00); RBC Distribution Width 13.8 % (11.8-14.1); White Blood Cell Count 5.94 k/cumm (4.4-10.8)
--- NOTE | 2019-05-17 14:04 | DI.CT_ITS ---
EXAM: CT HEAD WO CLINICAL HISTORY: Frontal headache, elevated blood pressure TECHNIQUE: COMPARISON: CT HEAD WO from 12/30/2018 FINDINGS: Noncontrast cranial CT was performed. Current examination is compared with previous examination of Jagdeep hand 2018. Note is again made of left insular infarct and small lacunar infarcts of the right basal ganglia as well as a probable old small right temporal lobe infarct. No gross interval change appearance comparison the previous examination. No evidence of acute intracranial hemorrhage, mass effect, or midline shift. The orbital and temporal bone structures appear intact. Mastoid air cells and paranasal sinuses are well aerated as visualized. IMPRESSION: No evidence of acute intracranial process. Old infarcts noted as described above.
[2019-05-17 14:17] LABS: ALT 31 U/L (16-63); AST 32 U/L (15-37); Albumin 2.6 g/dL (3.4-5.0); Alkaline Phosphatase 73 U/L (46-116); Anion Gap 5.2 mmol/L (3-11); BUN 20 mg/dL (7-18); Bilirubin, Total 0.3 mg/dL (0.2-1.0); CO2 30.8 mmol/L (21.0-32.0); CREATININE 1.21 mg/dL (0.70-1.30); Calcium 8.3 mg/dL (8.5-10.1); Chloride 106 mmol/L (98-107); Glucose 166 mg/dL (74-106); Potassium 4.5 mmol/L (3.5-5.1); Sodium 142 mmol/L (136-145); Total Protein 6.4 g/dL (6.4-8.2)
[2019-05-17 14:18] LABS: Troponin I < 0.05 ng/Ml (<0.06)
== END 2019-05-17 15:56 | disposition home or self-care (01) ==
PROVIDERS: Emergency Provider Emergency Medicine; PCP Nurse Practitioner Family
DX: G90.1 Familial dysautonomia [Riley-Day] (principal); I10 Essential (primary) hypertension; E10.65 Type 1 diabetes mellitus with hyperglycemia
CPT/HCPCS: 36415; 80053; 93005; 99285; 70450; 84484; 85025; 93010; 99284

== ENCOUNTER 2019-05-24 10:28 | Outpatient (CLI) | payer MEDICAID, SELFPAY ==
[2019-05-24 12:18] LABS: ALT 35 U/L (16-63); AST 38 U/L (15-37); Albumin 2.5 g/dL (3.4-5.0); Alkaline Phosphatase 73 U/L (46-116); Anion Gap 6.8 mmol/L (3-11); BUN 28 mg/dL (7-18); Bilirubin, Total 0.3 mg/dL (0.2-1.0); CO2 29.2 mmol/L (21.0-32.0); CREATININE 1.32 mg/dL (0.70-1.30); Calcium 7.9 mg/dL (8.5-10.1); Chloride 105 mmol/L (98-107); Estimated GFR 56.96 (mL/min/1.73m2); Glucose 239 mg/dL (74-106); Potassium 4.7 mmol/L (3.5-5.1); Sodium 141 mmol/L (136-145)
[2019-05-25 12:40] LABS: HIV-1/2 Ag & Ab Screen Negative (Negative)
[2019-05-25 14:44] LABS: COMMENT (LAB VIEW ONLY) 86.88 mg/dL
[2019-05-25 15:42] LABS: Fructosamine 314 mcmol/L (200 - 285)
== END 2019-05-24 10:48 ==
PROVIDERS: PCP Nurse Practitioner Family; Visit Provider Internal Medicine Endocrinology, Diabetes & Metabolism
DX: E10.65 Type 1 diabetes mellitus with hyperglycemia (principal)
CPT/HCPCS: 36415; 80053; 82533; 87389; 82043; 82565; 82570; 82985

== ENCOUNTER 2019-05-31 09:51 | Emergency (ER) | payer MEDICAID, SELFPAY ==
[2019-05-31] VITALS (35 sets, daily range): BP systolic 131–221; BP diastolic 76–107; PULSE 69–93; RESP 6–23; TEMP 36.4; O2SAT 95–99
[2019-05-31] MEDS: Normal Saline Flush 10 ML SYR IVP (09:55)
--- NOTE | 2019-05-31 10:27 | DI.CT_ITS ---
EXAM: CT HEAD - STROKE PROTOCOL CLINICAL HISTORY: roght sided weakness worse than baseline COMPARISON: CT HEAD WO from 05/17/2019 FINDINGS: There is cerebral atrophy and small vessel ischemic disease. Old bilateral infarcts are present. No acute territorial infarct is seen. No acute intracranial hemorrhage is present. The ventricles are intact. The basilar cisterns are patent. There is no acute midline shift or mass effect. The calv arium is intact. The visualized paranasal sinuses are clear as are the mastoid air cells. IMPRESSION: No acute intracranial process. The findings were discussed with the emergency department on the date of the examination.
[2019-05-31 10:29] LABS: Abs Immature Grans 0.01 k/cumm (0.0-0.09); Absolute Basophil Count 0.01 k/cumm (0.0-0.2); Absolute Eosinophil Count 0.08 k/cumm (0.0-0.7); Absolute Lymphocyte Count 1.81 k/cumm (1.2-3.4); Absolute Monocyte Count 0.67 k/cumm (0.11-0.7); Absolute Neutrophil Count 3.21 k/cumm (1.2-6.7); Basophils % 0.2; Eosinophils % 1.4; HCT 36.9 % (40.0-50.0); HGB 12.6 g/dL (13.5-17.5); Immature Grans % 0.2 %; Lymphocytes % 31.3; Mean Corp. HGB Concentration 34.1 g/dL (32.0-36.0); Mean Corpuscular Hemoglobin 31.3 pg (27.0-33.0); Mean Corpuscular Volume 91.8 fL (80-95); Mean Platelet Volume 10.4 fL (8.0-11.0); Monocytes % 11.6; Neutrophils % 55.3; Platelet Count 216 x1000/uL (130-400); RBC 4.02 m/cumm (4.50-6.00); RBC Distribution Width 13.7 % (11.8-14.1); White Blood Cell Count 5.79 k/cumm (4.4-10.8)
[2019-05-31 10:43] LABS: ALT 34 U/L (16-63); AST 43 U/L (15-37); Albumin 2.5 g/dL (3.4-5.0); Alkaline Phosphatase 72 U/L (46-116); Anion Gap 5.4 mmol/L (3-11); BUN 24 mg/dL (7-18); Bilirubin, Total 0.2 mg/dL (0.2-1.0); CO2 30.6 mmol/L (21.0-32.0); CREATININE 1.39 mg/dL (0.70-1.30); Calcium 8.2 mg/dL (8.5-10.1); Chloride 106 mmol/L (98-107); Estimated GFR 53.66 (mL/min/1.73m2); Glucose 312 mg/dL (74-106); Potassium 4.1 mmol/L (3.5-5.1); Sodium 142 mmol/L (136-145); Total Protein 6.3 g/dL (6.4-8.2)
--- NOTE | 2019-05-31 10:53 | DI.CT_ITS ---
EXAM: CT BRAIN NECK CTA CLINICAL HISTORY: right sided weakness since this AM. TECHNIQUE: Imaging Protocol: Axial computed tomography images with coronal and sagittal reformatted images were created and reviewed. Axial CT angiography was performed with multi-slice acquisition and multi-planar and/or 3D reconstruc tions. CONTRAST MATERIAL: Intravenous: Omnipaque 350 Contrast volume:100 mL contrast route:IV - Oral: No COMPARISON: No previous for comparison FINDINGS: CT neck CTA: Common carotid arteries: Unremarkable. No evidence of occlusion, dissection or significant stenosis. External carotid arteries: Unremarkable. No evidence of occlusion or significant stenosis. Internal carotid arteries: Mild atherosclerosis of the proximal right internal carotid artery. No ev idence of occlusion, dissection or significant stenosis. Vertebral arteries: There is a dominant left vertebral artery. No evidence of dissection, occlusion or significant stenosis. Lung apices: No acute abnormality. Thyroid gland: Unremarkable. Spine: Moderate degenerative changes. CT brain CTA: Internal carotid arteries: There is atherosclerosis of the petrous portion of the right internal vang tid artery. This results in mild narrowing. There is atherosclerosis of the cavernous portions of t he internal carotid arteries bilaterally. There is mild narrowing of the cavernous portion of the le ft internal carotid artery. No occlusion or aneurysm is present. Anterior cerebral arteries: Unremarkable. No evidence of occlusion, aneurysm or significant stenosis . Middle cerebral arteries: Unremarkable. No evidence of occlusion, aneurysm or significant stenosis. Posterior cerebral arteries: Unremarkable. No evidence of occlusion, aneurysm or significant stenosi s. Basilar artery: Unremarkable. No evidence of aneurysm, occlusion or significant stenosis. IMPRESSION: 1. Atherosclerosis. 2. No evidence of occlusion or significant stenosis 3. These findings were discussed with the emergency department on the date of the examination. DATA REPOSITORY: All CT scans at this facility are submitted to the National Radiology Data Registry (NRDR) Dose Index Registry (DIR) with the [employer] (A[employer]). RADIATION OPTIMIZATION: All CT scans at this facility use at least one of these dose optimization te chniques: automated exposure control; mA and/or kV adjustment per patient size (includes targeted exa ms where dose is matched to clinical indication); or iterative reconstruction.
--- NOTE | 2019-05-31 11:39 | ED.GENADUL_ITS ---
Discharge Plan Disposition Patient Disposition: [facility] Discharge Details Chief Complaint: CVA/TIA Clinical Impression: Acute CVA (cerebrovascular accident) Primary Care Provider: Amada Law ED Provider: Topher Bang Home Meds and New Rx's Prescriptions: No Action fludrocortisone 0.1 mg tablet 0.2 mg PO DAILY Qty: 180 RF: 3 Adult 50 Plus Probiotic 4 billion cell capsule 4,000 mmu cells PO DAILY RF: 0 fluoxetine [Prozac] 20 mg capsule 20 mg PO DAILY RF: 0 (DME) lancets [OneTouch Delica Lancets] 1 EACH misc 1 ea Miscellaneous AC & HS Qty: 360 RF: 3 (DME) pen needle, diabetic [BD Ultra-Fine Orig Pen Needle] 1 EACH needle 1 ea Miscellaneous QID Qty: 300 RF: 3 (DME) OneTouch Verio 1 EACH strip 1 ea Miscellaneous AC & HS Qty: 400 RF: 3 buspirone 15 MG tablet 15 mg PO BID Qty: 60 RF: 0 Atorvastatin Calcium 10 MG tablet 10 mg PO DAILY Qty: 30 RF: 0 acetaminophen [Tylenol Extra Strength] 500 MG tablet 1,000 mg PO Q6H PRN PRNRF: 0 Glucagon Emergency Kit (human) 1 MG kit 1 mg IJ PRN PRNRF: 0 dextrose [Glutose-15] 15 GM/37.5 GM gel 15 gm PO DIRECTED PRNQty: 1 RF: 0 ranitidine HCl [Zantac] 150 MG tablet 150 mg PO BID RF: 0 lisinopril 10 MG tablet 10 mg PO DAILY RF: 0 insulin aspart U-100 [Novolog Flexpen U-100 Insulin] 300 UNITS/3 ML insulin pen 1 unit Sub-Q 0800,1200,1700 RF: 0 pregabalin [Lyrica] 100 mg Capsule 100 mg PO BID RF: 0 melatonin 5 mg Tablet 5 mg PO HS RF: 0 Lantus Solostar U-100 Insulin 100 unit/mL (3 mL) Insulin Pen 6 unit SUBCUT DAILY AM RF: 0 divalproex 500 mg Tablet,Delayed Release (Dr/Ec) 1,000 mg PO BID RF: 0 Lantus Solostar U-100 Insulin 100 unit/mL (3 mL) Insulin Pen 4 unit SUBCUT HS RF: 0 verapamil 120 mg tablet 40 mg PO QHS RF: 0 Discharge Data Discharge Date/Time-TO BE ENTERED AT DEPARTURE: 05/31/19 13:30 Medical Decision Making 12:00 -- Patient was seen on arrival. 53-year-old male with prior history of CVA with residual right-sided weakness, here with acutely worsening right-sided weakness since waking this morning. Last known normal 6 PM yesterday. Patient does have pronounced right facial droop and weakness on right upper right lower extremity. Screening ECG was reviewed and interpreted by me: Sinus rhythm 82 bpm, normal axis, no ischemic findings. Nondiagnostic. Concern for acute CVA. Stroke alert called. -- CT of the head was interpreted by radiology: Negative for acute pathology. CTA of the head and neck were reviewed and interpreted by radiology: No acute process, atherosclerotic disease noted. -- Patient severely hypertensive. Labetalol 20 mg IV given. -- I called and spoke with [facility] transfer center and spoke with Dr. Cody, on- call neurologist, discussed ED presentation and course including diagnostics, I have sent CT head and CTA for her review, she has agreed to accept the patient in transfer. She recommends maintaining systolic blood pressure around 180 with nicardipine if necessary and also treat with aspirin. Patient was stable at time of transfer. HPI General Mode of arrival: ambulatory . Date/Time Provider Initiated Documentation: 05/31/19 09:59 . Limitations to Documentation: no limitations . Information obtained by: patient . HPI Narrative: 53yo m with history of hypertension, diabetes, bipolar disorder, prior CVA with residual right-sided weakness, here with acutely worsening right-sided weakness. Patient notes he went to bed without abnormal symptoms last night around 6:30 PM. This morning he woke up with much worse right-sided weakness that has persisted over the past few hours. Weakness is now severe. Constant. No modifiers. Weakness is localized to his right arm and leg, he also has associated right-sided facial droop. He has mild headache. Related Data Home Medications Medication Instructions Recorded Confirmed lancets [Litblocuch Manifest Lancets] #360 ea 01/08/16 05/17/19 acetaminophen [Tylenol Extra 1,000 mg PO Q6H PRN PRN 02/26/16 05/31/19 Strength] pen needle, diabetic [BD #300 04/06/17 05/17/19 Ultra-Fine Orig Pen Needle] OneTouch Verio #400 strip 07/01/17 05/17/19 buspirone 15 mg PO BID #60 tab-cap 09/23/17 05/31/19 Glucagon Emergency Kit (human) 1 mg IJ PRN PRN 10/29/17 05/31/19 dextrose [Glutose-15] 15 gm PO DIRECTED PRN #1 tube 11/26/17 05/31/19 insulin aspart U-100 [Novolog 1 unit SUB-Q 0800,1200,1700 pen 11/26/17 05/31/19 Flexpen U-100 Insulin] lisinopril 10 mg PO DAILY tab 11/26/17 05/31/19 ranitidine HCl [Zantac] 150 mg PO BID tab 11/26/17 05/31/19 pregabalin [Lyrica] 100 mg PO BID 05/06/18 05/31/19 lactobacillus combination no.9 4 4,000 mmu cells PO DAILY 01/03/19 05/31/19 billion cell capsule Lantus Solostar U-100 Insulin 6 unit SUBCUT DAILY AM 03/03/19 05/31/19 melatonin 5 mg PO HS 03/03/19 05/31/19 divalproex 1,000 mg PO BID 03/04/19 05/31/19 fludrocortisone 0.1 mg tablet 0.2 mg PO DAILY #180 tab-cap 04/07/19 05/31/19 fluoxetine 20 mg capsule 20 mg PO DAILY tab-cap 05/11/19 05/31/19 Lantus Solostar U-100 Insulin 4 unit SUBCUT HS 05/17/19 05/31/19 verapamil 40 mg PO QHS 05/17/19 05/31/19 Previous Rx's Medication Instructions Recorded pen needle, diabetic [BD #300 04/06/17 Ultra-Fine Orig Pen Needle] OneTouch Verio #400 strip 07/01/17 buspirone 15 mg PO BID #60 tab-cap 09/23/17 dextrose [Glutose-15] 15 gm PO DIRECTED PRN #1 tube 11/26/17 insulin aspart U-100 [Novolog 1 unit SUB-Q 0800,1200,1700 pen 11/26/17 Flexpen U-100 Insulin] lisinopril 10 mg PO DAILY tab 11/26/17 ranitidine HCl [Zantac] 150 mg PO BID tab 11/26/17 fludrocortisone 0.1 mg tablet 0.2 mg PO DAILY #180 tab-cap 04/07/19 Allergies Allergy/AdvReac Type Severity Reaction Status Date / Time No Known Drug Allergies Allergy none Unverified 05/31/19 11:55 General Stated Complaint: CVA/TIA ESTEFANIA: 1 Review of Systems Constitutional Constitutional: Denies fever(s) Neurologic Neurologic: Reports as per HPI REPLACED BY [facility] Medical History Bipolar affective disorder in remission (Acute) Harshad Wisam [facility] Clostridium difficile infection Depression Diabetic neuropathy, type I diabetes mellitus (Acute 03/15/14) Diabetic retinopathy Diabetic ulcer of right foot (Acute 03/15/14) culture: yeast & bacterial; MRI (-) for osteomyelitis DJD (degenerative joint disease) of cervical spine (Acute 07/26/15) DNR (do not resuscitate) (Acute 06/24/17) AD & COLST completed & in chart Essential hypertension (Acute 03/19/16) ETOH abuse Fracture, metacarpal (01/08/14) Displaced 5th R hand Gastric ulcer (Acute 05/29/16) [facility] GI GERD (gastroesophageal reflux disease) Hemorrhagic stroke (Acute 08/25/16) [facility] hospitalization 08/25-09/12/2016 L intracerebral hemorrhage of basal ganglia/insula Residual right hemiparesis/neglect/dysarthria Hyperlipidemia (Acute 03/15/14) Incomplete bladder emptying (Acute 03/31/17) Insomnia (Acute 03/15/14) Orthostatic hypotension (Acute 08/02/15) Fludrocortisone d/c'ed 02/2016 when issues with hypertension Restarted while @ [facility] [Jan-Mar 2017][?[employer]]. Refilling @ d/c 03/2017, but requires re-evaluation (shannon 2' DM, recent falls @ home). ik Midodrine Hx shows Rx in 11/2016. Continued @ [facility] and on d/c. Re-evaluate (?urin ret'n, urin urgency). Pyridostigmine (30mg TID) @ [facility]. Hx shows Rx in 11/2016. Continued @ [facility] and on d/c. Re-evaluate [cholinergic/mm weakness, urin urgency]? Palmar space infection of left hand (Acute 06/06/15) 04/11/15 [facility]: MSSA 1 month IV oxacillin; I&Dx4 Right foot drop (Acute) 2nd to stroke Tobacco use disorder (Acute 03/15/14) Uncontrolled type 1 diabetes mellitus (Acute 03/13/14) HbA1c goal </= 8% Numerous urgent/emergent actions required for high/low BG readings while @ [facility] (Nov-Mar 2017) Surgical History EGD - MAC (05/03/16) EGD w/ BX (06/24/16) Entrapment of left ulnar nerve at elbow (Acute) s/p exploration with sural nerve grafting Ganglion cyst of dorsum of left wrist (Acute) H/O hernia repair (Chronic) H/O knee surgery (Acute) History of carpal tunnel release of both wrists (Acute) I&D LEFT DEEP [place] SPACE (04/23/15) Family History Mother , PNA, HF at age 79. 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 Exam Const General: cooperative and no acute distress [facility] Head: normocephalic and atraumatic Mouth: moist mucous membranes Eyes Conjunctivae: normal conjunctivae Sclera: normal sclerae EOM: EOM intact bilaterally Neck Neck: trachea midline and supple Resp Auscultation: clear to auscultation bilaterally, no rales, no rhonchi and no whe ezes Cardio Jugular venous pressure: no JVD Rate: regular rate and not tachycardic Rhythm: regular rhythm GI Palpation: soft, not firm, no guarding, no masses, not rigid and nontender Skin General skin exam: no rashes or lesions noted Neuro General: alert, awake and oriented x3 Cognition: normal cognition Motor: strength abnormal (RLE 3/5; RUE 2/5; rt facial droop) Sensory Exam: other (chronic decreased sensation distal LLE, UEs equal) Extrem General: no edema Psych Appearance: grossly normal Mental Status: mental status grossly normal Speech and Movement: speech and movement normal Course Vital Signs Vital signs: Vital Signs Temperature 36.4 C L 05/31/19 09:58 Pulse 80 05/31/19 09:58 Respiratory Rate 16 05/31/19 09:58 Blood Pressure 221/107 H 05/31/19 09:58 Pulse Oximetry 98 05/31/19 09:58 Temperature 36.4 C L 05/31/19 09:58 Temperature Source Skin 05/31/19 09:58 Pulse 80 05/31/19 09:58 Respiratory Rate 16 05/31/19 09:58 Blood Pressure 221/107 H 05/31/19 09:58 Blood Pressure Position Supine 05/31/19 09:58 Pulse Oximetry 98 05/31/19 09:58 Oxygen Delivery Method Room Air 05/31/19 09:58 Oxygen Flow Rate 0 05/31/19 09:58 Lab/Test Results Lab/Test Results: Laboratory Tests Range/Units 05/31/19 05/31/19 10:20 10:20 WBC (4.4-10.8) k/cumm 5.79 RBC (4.50-6.00) m/cumm 4.02 L Hgb (13.5-17.5) g/dL 12.6 L Hct (40.0-50.0) % 36.9 L MCV (80-95) fL 91.8 MCH (27.0-33.0) pg 31.3 MCHC (32.0-36.0) g/dL 34.1 RDW (11.8-14.1) % 13.7 Plt Count (130-400) x1000/uL 216 MPV (8.0-11.0) fL 10.4 Immature Gran % % 0.2 Neutrophils % 55.3 Lymphocytes % 31.3 Monocytes % 11.6 Eosinophils % 1.4 Basophils % 0.2 Absolute Neutrophils (1.2-6.7) k/cumm 3.21 Absolute Lymphocytes (1.2-3.4) k/cumm 1.81 Absolute Monocytes (0.11-0.7) k/cumm 0.67 Absolute Eosinophils (0.0-0.7) k/cumm 0.08 Absolute Basophils (0.0-0.2) k/cumm 0.01 Sodium (136-145) mmol/L 142 Potassium (3.5-5.1) mmol/L 4.1 Chloride (98-107) mmol/L 106 Carbon Dioxide (21.0-32.0) mmol/L 30.6 Anion Gap (3-11) mmol/L 5.4 BUN (7-18) mg/dL 24 H Creatinine (0.70-1.30) mg/dL 1.39 H Estimated GFR/1.73 m2 (mL/min/1.73m2) 53.66 Glucose (74-106) mg/dL 312 H Calcium (8.5-10.1) mg/dL 8.2 L Total Bilirubin (0.2-1.0) mg/dL 0.2 AST (15-37) U/L 43 H ALT (16-63) U/L 34 Alkaline Phosphatase (46-116) U/L 72 Total Protein (6.4-8.2) g/dL 6.3 L Albumin (3.4-5.0) g/dL 2.5 L Critical Care Time Critical Care Time Critical Care Time: Yes Total Critical Care Time: 40 Attestation: I spent greater than 40 minutes addressing this patient's immediate life threats
[2019-05-31] MEDS: Labetalol 100 MG/20 ML VIAL 20 MG IVP (12:00)
[2019-05-31] MEDS: Aspirin 325 MG TAB PO (12:25)
== END 2019-05-31 13:30 | disposition short-term general hospital (02) ==
LOC: ER 10:34
PROVIDERS: Emergency Provider Student in an Organized Health Care Education/Training Program; PCP Nurse Practitioner Family
DX: I69.392 Facial weakness following cerebral infarction (principal); I63.9 Cerebral infarction, unspecified; I69.341 Monoplegia of lower limb following cerebral infarction affecting right dominant side; I69.331 Monoplegia of upper limb following cerebral infarction affecting right dominant side; I10 Essential (primary) hypertension; E10.9 Type 1 diabetes mellitus without complications
CPT/HCPCS: 36415; 36416; 70496; 70498; 80053; 82962; 93005; 96374; 99285; 70450; 85025; 93010; 99284

== ENCOUNTER 2019-06-20 07:16 | Outpatient (CLI) | payer MEDICAID, SELFPAY ==
[2019-06-20 10:11] LABS: ALT 29 U/L (16-63); AST 25 U/L (15-37); Albumin 2.4 g/dL (3.4-5.0); Alkaline Phosphatase 74 U/L (46-116); Anion Gap 6.2 mmol/L (3-11); BUN 28 mg/dL (7-18); Bilirubin, Total 0.2 mg/dL (0.2-1.0); CO2 30.8 mmol/L (21.0-32.0); CREATININE 1.28 mg/dL (0.70-1.30); Calcium 8.2 mg/dL (8.5-10.1); Chloride 107 mmol/L (98-107); Estimated GFR 59.02 (mL/min/1.73m2); Glucose 205 mg/dL (74-106); Potassium 4.3 mmol/L (3.5-5.1); Sodium 144 mmol/L (136-145); Total Protein 5.8 g/dL (6.4-8.2)
[2019-06-21 16:42] LABS: Fructosamine 305 mcmol/L (200 - 285)
[2019-06-21 17:31] LABS: HIV-1/2 Ag & Ab Screen Negative (Negative)
== END 2019-06-20 07:36 ==
PROVIDERS: PCP Nurse Practitioner Family; Visit Provider Internal Medicine Endocrinology, Diabetes & Metabolism
DX: T14.8XXA Other injury of unspecified body region, initial encounter (principal); W46.0XXA Contact with hypodermic needle, initial encounter; R42 Dizziness and giddiness; E10.65 Type 1 diabetes mellitus with hyperglycemia
CPT/HCPCS: 36415; 80053; 82533; 87389; 82043; 82565; 82570; 82985

== ENCOUNTER 2019-06-21 11:12 | Outpatient (REF) | payer MEDICAID, SELFPAY ==
[2019-06-21 14:37] LABS: COMMENT (LAB VIEW ONLY) 105.14 mg/dL
== END 2019-06-21 11:32 ==
LOC: LBN 11:12
PROVIDERS: PCP Nurse Practitioner Family; Visit Provider Internal Medicine Endocrinology, Diabetes & Metabolism
DX: E88.09 Other disorders of plasma-protein metabolism, not elsewhere classified (principal)
CPT/HCPCS: 82043; 82570